=== PATIENT | female | born 1960 | race Caucasian/White ===

== ENCOUNTER 2021-04-24 10:51 | Outpatient (CLI) | payer MEDICAID, SELFPAY ==
--- NOTE | ~2021-04-24 | XR_ITS ---
EXAMINATION: XR knee RT 2V DATE: 04/24/2021 11:27 INDICATION: Right knee pain. TECHNIQUE: 2 views of right knee were obtained. COMPARISON: None. FINDINGS: Bone alignment is normal. No fracture. There is mild tricompartmental osteoarthritis. No kn ee joint effusion. There are loose bodies in the knee joint posteriorly. IMPRESSION: 1. Mild right knee osteoarthritis. 2. Right knee joint loose bodies. Reviewed, dictated and finalized at location A.
--- NOTE | ~2021-04-24 | XR_ITS ---
XR hip RT min 2V DATE: 04/24/2021 11:27 INDICATION: Right hip pain TECHNIQUE: AP and lateral views COMPARISON: November 20, 2013 pelvis FINDINGS: No fracture or dislocation, avascular necrosis or bone destruction of the right hip is evid ent. Hip joint space appears relatively well preserved. IMPRESSION: No significant abnormality of right hip Reviewed, dictated and finalized at location A.
--- NOTE | ~2021-04-24 | XR_ITS ---
XR lumbar spine 2-3V DATE: 04/24/2021 11:27 INDICATION: Chronic back pain, right hip pain TECHNIQUE: AP, lateral, coned lateral lumbosacral views COMPARISON: None FINDINGS: Surgical clips, retrocardiac, consistent with cholecystectomy. Normal alignment of the lumbar spine. No fracture or bone destruction or spondylolisthesis. The lumba r pedicles are intact. There is mild degenerative spurring of the lumbar spine. Lumbar and lumbosacral interspaces are intac t other than mild narrowing primarily at L3-4 and L4-5. The sacroiliac joints are intact. IMPRESSION: Mild degenerative change of the lumbar spine Reviewed, dictated and finalized at location A.
--- NOTE | ~2021-04-24 | XR_ITS ---
XR_CERV2-3V_CR DATE: 04/24/2021 11:27 INDICATION: Chronic neck pain TECHNIQUE: AP, open-mouth, lateral views COMPARISON: None FINDINGS: C1 and C2 are normally aligned and the odontoid process is intact. No fracture or dislocati on or locked facet or prevertebral soft tissue swelling. There is moderate degenerative disc disease and uncovertebral joint spurring at C5-6 and C6-7. IMPRESSION: Cervical spondylosis Reviewed, dictated and finalized at Location A. Reviewed, dictated and finalized at location A. IMPRESSION: Cervical spondylosis
--- NOTE | ~2021-04-24 | XR_ITS ---
XR thoracic spine 3V DATE: 04/24/2021 11:27 INDICATION: Chronic back pain TECHNIQUE: Standing AP, lateral, swimmer views COMPARISON: None FINDINGS: There is minimal levoscoliosis of the thoracic spine. There is moderate degenerative spurri ng, primarily at the mid and lower thoracic region. No fracture or dislocation or bone destruction. The thoracic pedicles are intact. No paraspinal soft tissue thickening. Surgical clips overlie the right upper quadrant, consistent with cholecystectomy. IMPRESSION: Mild levoscoliosis and moderate degenerative spurring Reviewed, dictated and finalized at location A.
== END 2021-04-24 10:52 | disposition home or self-care (01) ==
LOC: CHSIMG 10:55
PROVIDERS: PCP Nurse Practitioner Family; Visit Provider Nurse Practitioner
DX: M25.561 Pain in right knee (principal); M54.9 Dorsalgia, unspecified; M25.551 Pain in right hip
CPT/HCPCS: 72040; 72072; 72100; 73502; 73560

== ENCOUNTER 2021-06-25 13:41 | Outpatient (CLI) | payer OTHER, SELFPAY ==
--- NOTE | ~2021-06-25 | XR_ITS ---
EXAMINATION: XR chest 2V DATE: 06/25/2021 14:10 INDICATION: Cough. TECHNIQUE: Frontal and lateral views of the chest were obtained. COMPARISON: Chest single view 08/09/2018 FINDINGS: The chest demonstrates clear lungs without pneumonia, pleural effusion, or pneumothorax. Th e heart size is normal. Surgical clips in the right upper quadrant are likely from cholecystectomy. IMPRESSION: 1. No acute cardiopulmonary disease. Reviewed, dictated and finalized at location A.
== END 2021-06-25 13:42 | disposition home or self-care (01) ==
LOC: CHSLAB 13:42
PROVIDERS: PCP Nurse Practitioner Family; Visit Provider Physician Assistant
DX: R05 Cough (principal)
CPT/HCPCS: 71046

== ENCOUNTER 2021-08-27 11:06 | Outpatient (RCR) | payer OTHER, SELFPAY ==
--- NOTE | 2021-08-27 11:56 | PTOPEVAL ---
Thank you for referring Kierra Bonner to [facility].? The patient is scheduled to be seen for therapy? ____x/week for ___ weeks. Please review, sign, date and return this plan of care LAURA. I agree with and certify that the following plan of care is medically necessary. Referring Physician Date Admitting Provider: Attending Provider: Pravin Yang MD Referring Provider: *PT Outpatient Evaluation Start: 08/27/21 11:16 Freq: Status: Active Protocol: Document 08/27/21 11:15 [facility] (Rec: 08/27/21 11:55 [facility] [id number]) Therapy Assessment Status Assessment Status Assessment Status Evaluation Evaluation Information Problem Diagnosis R knee pain, DJD, PFPS Onset 04/24/21 Additional Evaluation Detail LEFS = 56% functionally declined Subjective Information patient reports she has been Query Text:As Reported By Patient/ having pain in the R knee Family since April of this year. she reports the knee is swollen. she reports she also has pain in the R ankle. she reports she also has pain/burning in her hips with walking. she reports back in April she began having pain. she had xrays of the entire spine and the hips . she reports later on she had an xray of the R knee. patient reports she had an injection of the R knee after xray. she reports this injection on 08/06/21. she reports some help from injection to the R knee. Prior Level of Function Comments Additional Prior Level of Function prior to April, patient reports Comments she was having more problems in the R ankle and neck. she reports plantar fascitis like symptoms int he R foot. she reports prior to April she was walking further distances/time , walking more stairs, and not limited in recreational/ community activities. she would like to get into an exercise and weight loss program. Pain Assessment Timing of Pain Assessment Timing of Pain Assessment Assessment Pain Scale Pain Scale Used [facility]
--- NOTE | 2021-09-29 11:02 | PTOPEVAL ---
Thank you for referring Kierra Bonner to [facility].? The patient is scheduled to be seen for therapy? ____x/week for ___ weeks. Please review, sign, date and return this plan of care LAURA. I agree with and certify that the following plan of care is medically necessary. Referring Physician Date Admitting Provider: Attending Provider: Pravin Yang MD Referring Provider: *PT Outpatient Evaluation Start: 08/27/21 11:16 Freq: Status: Active Protocol: Document 09/29/21 10:16 [facility] (Rec: 09/29/21 11:02 [facility] [id number]) Therapy Assessment Status Assessment Status Assessment Status Progress Evaluation Information Problem Diagnosis R knee pain, DJD, PFPS Onset 04/24/21 Subjective Information Patient reports that since Query Text:As Reported By Patient/ beginning therapy she has been Family feeling better since therapy. She states the pain is better and is a lot stronger. She states it is not buckling as much also. Patient states that she continues to be careful when walking and going up and down steps, but they are much easier. She states that since getting her orthodics, she feels much steadier and able to be on her feet for a period of time. Pain Assessment Timing of Pain Assessment Timing of Pain Assessment Assessment Pain Scale Pain Scale Used Numeric (1 - 10) Self Report Pain Assessment Right Knee(s) Reported Pain Level 4 Pain Description Aching,Dull Greatest Pain Intensity 5 Pain Score Pain Score 4: Self Report Interventions Used Interventions Used By Clinicians Activity or ADL's,Electrical Stimulation,Exercise,Heat Lower Extremity Range of Motion General Lower Extremity Range of Motion Gross Lower Extremity Range of Motion R knee AROM: 0-2-117 Comments L knee AROM: 0-116 Lower Extremity Muscle Strength Testing Hip Strength Right Hip Flexion Strength 4- Good - Hip Abduction Strength 4+ Good + Hip Adduction Strength 4+ Good + Left Hip Flexion Strength 4 Good Hip Abduction Strength 4+ Good + Hip Adduction Strength 4+ Good + Knee Strength Right Knee Flexion Strength 5 Normal Knee Extension Strength 5 Normal Left Knee Flexion Strength 5 Normal Knee Extension Strength 5 Normal Gait Assessment Gait Assessment
--- NOTE | 2021-10-15 17:08 | PTOPEVAL ---
Thank you for referring Kierra Bonner to [facility].? The patient is scheduled to be seen for therapy? ____x/week for ___ weeks. Please review, sign, date and return this plan of care LAURA. I agree with and certify that the following plan of care is medically necessary. Referring Physician Date Admitting Provider: Attending Provider: Pravin Yang MD Referring Provider: *PT Outpatient Evaluation Start: 08/27/21 11:16 Freq: Status: Active Protocol: Document 10/15/21 16:14 [facility] (Rec: 10/15/21 17:08 [facility] [id number]) Therapy Assessment Status Assessment Status Assessment Status Discharge Evaluation Information Problem Diagnosis R knee pain, DJD, PFPS Onset 04/24/21 Pain Assessment Timing of Pain Assessment Timing of Pain Assessment Assessment Pain Scale Pain Scale Used Numeric (1 - 10) Self Report Pain Assessment Right Knee(s) Reported Pain Level 3 Greatest Pain Intensity 4 Pain Score Pain Score 3: Self Report Interventions Used Interventions Used By Clinicians Activity or ADL's Lower Extremity Range of Motion General Lower Extremity Range of Motion Gross Lower Extremity Range of Motion R: 0-1-117 Comments L: 0-116 Lower Extremity Muscle Strength Testing Hip Strength Right Hip Flexion Strength 4+ Good + Hip Abduction Strength 4+ Good + Hip Adduction Strength 4+ Good + Left Hip Flexion Strength 5 Normal Hip Abduction Strength 4+ Good + Hip Adduction Strength 4+ Good + Knee Strength Right Knee Flexion Strength 5 Normal Knee Extension Strength 5 Normal Left Knee Flexion Strength 5 Normal Knee Extension Strength 5 Normal Muscle Length Testing Muscle Length Testing Left Hamstring Length 0 Query Text:(90 - 90 Position) Right Hamstring Length 0 Query Text:(90 - 90 Position) Gait Assessment Gait Assessment Additional Ambulation Comments Patient ambulates with B hip drop, but weight is evenly distributed between R and L. General Exercise General Exercises Exercise Description TherEx Query Text:Record Sets, Reps, - side stepping x 25 ft x 2 Resistance, and Position - heel raises x 30 - toe raises x 30 - slantboard x 1 minute x 3 - standing hip abduction x 30 B - standing hip extension x 30 B - squats x 20 - nustep 10 minutes level 5 -
== END 2021-10-15 10:23 | disposition home or self-care (01) ==
LOC: CHSPT 11:06
PROVIDERS: Visit Provider Orthopaedic Surgery
DX: M17.11 Unilateral primary osteoarthritis, right knee (principal); M25.561 Pain in right knee
CPT/HCPCS: 97014; 97110; 97140; 97161; 97530; G0283

== ENCOUNTER 2021-11-17 11:44 | Outpatient (CLI) | payer OTHER, SELFPAY ==
[2021-11-17 12:03] LABS: Basophils Absolute Auto 0.04 K/mm3 (0.00-0.10); Basophils Percent Auto 0.4 % (0.0-1.0); Eosinophils Absolute Auto 0.19 K/mm3 (0.02-0.50); Eosinophils Percent Auto 1.9 % (1.0-6.0); Hematocrit 40.8 % (35.0-49.0); Hemoglobin 13.7 g/dL (12.0-15.0); Immature Granulocyte Absolute 0.03 K/mm3 (0.00-0.00); Immature Granulocyte Percent A 0.3 % (0.0-0.0); Lymphocytes Absolute Auto 3.69 K/mm3 (1.10-4.50); Lymphocytes Percent Auto 36.8 % (18.0-42.0); Mean Corpuscular HGB Conc 33.6 g/dL (32.0-36.0); Mean Corpuscular Hemoglobin 31.7 pg (27.0-31.0); Mean Corpuscular Volume 94.4 fL (78.0-102.0); Mean Platelet Volume 9.3 fl (9.2-11.8); Monocytes Absolute Auto 0.79 K/mm3 (0.10-0.90); Monocytes Percent Auto 7.9 % (2.0-11.0); Neutrophils Absolute Auto 5.3 K/mm3 (1.7-7.2); Neutrophils Percent Auto 52.7 % (50.0-70.0); Platelet Count Result 262 K/mm3 (150-420); Red Blood Count 4.32 M/mm3 (4.20-5.40); Red Cell Distribution Width 11.9 % (11.6-14.4)
[2021-11-17 12:20] LABS: Hemoglobin A1C 6.3 % (<5.7)
[2021-11-17 12:46] LABS: Alanine Aminotransferase 63 U/L (14-59); Albumin Level 4.1 g/dL (3.4-5.0); Alkaline Phosphatase 70 U/L (46-116); Anion Gap 13 mmol/L (8-16); Aspartate Amino Transferase 34 U/L (15-37); Bilirubin,Total 0.6 mg/dL (0.00-1.00); Blood Urea Nitrogen 14 mg/dL (7-18); Carbon Dioxide 24 mmol/L (21-32); Chloride 99 mmol/L (98-108); Cholesterol 162 mg/dL (0-200); Estimated Glomerular Filt Rate 56; Free T4 Free Thyroxine 1.11 ng/dL (0.76-1.46); Glucose 127 mg/dL (70-99); HDL Direct 59 mg/dL (40-60); LDL Cholesterol Calculated 71 mg/dL (<130); Osmolality Calculated 284 mOsm/kg (285-295); Potassium 4.1 mmol/L (3.5-5.1); Sodium 136 mmol/L (136-145); Thyroid Stimulating Hormone 2.58 uIU/mL (0.36-3.74); Total Protein 7.8 g/dL (6.4-8.2); Triglycerides 162 mg/dL (0-150)
== END 2021-11-17 11:45 | disposition home or self-care (01) ==
LOC: CHSLAB 11:47
PROVIDERS: PCP Nurse Practitioner Family; Visit Provider Nurse Practitioner Family
DX: E11.9 Type 2 diabetes mellitus without complications (principal); E78.2 Mixed hyperlipidemia; I10 Essential (primary) hypertension; M54.9 Dorsalgia, unspecified
CPT/HCPCS: 36415; 80053; 80061; 83036; 84439; 84443; 85025

== ENCOUNTER 2021-11-25 10:21 | Outpatient (RCR) | payer OTHER, SELFPAY ==
--- NOTE | 2021-11-25 12:40 | OTOPEVAL ---
Thank you for referring Kierra Bonner to [facility].? The patient is scheduled to be seen for therapy? ____x/week for ___ weeks. Please review, sign, date and return this plan of care LAURA. I agree with and certify that the following plan of care is medically necessary. 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 Patient reports that her R thumb has been swollen and painful for about 1-1.5 years. 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 Patient has a history of a R elbow fracture in ~[id number] and reports that over the last 6 months her R elbow and dorsal forearm have been painful. Patient does everything with her R hand but does perform handwriting with her L. Patient states that turning something, opening a door, typing, grasping objects are all painful and more difficult. QuickDASH: 61.4% Diagnostic Tests X-Rays For This Problem Yes Prior Level of Function Activity Level (Last 3 Months) Occupation currently unemployed Hand Dominance Ambidextrous Activity of Daily Living Ability Independent Indoor/Home Mobility Independent Community Mobility Independent Stairs Ability Independent Functional Cognition (Planning, Shopping Independent , Taking Medications) Cooking Yes Cleaning Yes Laundry Yes Shopping Yes Driving Yes Pain Assess
--- NOTE | 2022-02-16 16:48 | PCOTNOTE ---
Patient was seen for 11 OT sessions. Last scheduled apt was cancelled/no-showed multiple times therefore a formal discharge was not completed. See patient's last treatment note for functional status at time of discharge. MS
== END 2021-12-29 09:48 | disposition home or self-care (01) ==
LOC: CHSOT 10:21
PROVIDERS: Visit Provider Nurse Practitioner Family
DX: M19.021 Primary osteoarthritis, right elbow (principal)
CPT/HCPCS: 97014; 97035; 97110; 97140; 97165; G0283

== ENCOUNTER 2021-12-23 08:10 | Outpatient (CLI) | payer OTHER, SELFPAY ==
--- NOTE | ~2021-12-23 | CT_ITS ---
EXAMINATION: CT abdomen w con INDICATION: Right upper quadrant pain TECHNIQUE: Computed tomographic images of the abdomen were obtained after the administration of 100 c c of Omnipaque 350 intravenous contrast. The dose-length product (DLP) was 932.55 mGy-cm. Automated e xposure control and iterative reconstruction technique were employed. COMPARISON: None available FINDINGS: The lung bases are clear. The heart size is normal. The gallbladder is surgically absent. T he liver is diffusely low in attenuation when compared with the spleen, consistent with hepatic steat osis. The spleen, pancreas, and adrenal glands are normal. The kidneys are unremarkable. There are no pathologically enlarged abdominal lymph nodes. There is no free intraperitoneal gas or evidence of b owel obstruction. Moderate lower thoracic spondylosis is noted. There is a small umbilical hernia con taining fat. IMPRESSION: 1. Diffuse hepatic steatosis. Reviewed, dictated and finalized at location B. 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
[2021-12-23 08:32] LABS: Estimated Glomerular Filt Rate 54
== END 2021-12-23 08:11 | disposition home or self-care (01) ==
LOC: CHSIMG 08:12
PROVIDERS: PCP Nurse Practitioner Family; Visit Provider Nurse Practitioner Family
DX: R10.11 Right upper quadrant pain (principal)
CPT/HCPCS: 74160; Q9967

== ENCOUNTER 2022-04-15 11:12 | Emergency (ER) | payer OTHER, SELFPAY ==
[2022-04-15 11:20] VITALS: BP 140/67; PULSE 72; RESP 16; TEMP 36; O2SAT 97
--- NOTE | 2022-04-15 11:37 | ED.EYEPROB ---
HPI - Eye Problem General Chief complaint: Eye Problems Stated complaint: pain, swelling, itchiness in both eyes, L ear pain Source: patient Mode of arrival: ambulatory Limitations: no limitations History of Present Illness HPI Narrative: this is a 61-year-old female that presents with redness around the the eyes with itching conjunctiva is spared there is currently no drainage but the IA eyes are itchy, with some ear congestion and pressure with some nasal discharge frontal sinus pressure with no shortness of breath no audible wheezing no fever chills. The patient believes that she got into some outdoor plants and cause some itching to her facial area and especially around. chief complaint: eye pain and eye redness Onset (ago): day(s) Onset description: gradual Duration: constant Location: both eyes Eye Symptoms: redness Place: street/outdoors Severity: mild Related Data Home Medications Medication Instructions Recorded Confirmed metformin 1,000 mg tablet 1,000 mg PO DAILY 09/29/21 04/15/22 bupropion HCl 300 mg 24 hr tablet, 300 tablet PO DAILY 04/15/22 04/15/22 extended release lisinopril 10 1 tablet PO DAILY 04/15/22 04/15/22 mg-hydrochlorothiazide 12.5 mg tablet Allergies Allergy/AdvReac Type Severity Reaction Status Date / Time Sulfa (Sulfonamide Allergy Unknown Unknown Verified 04/15/22 11:27 Antibiotics) Review of Systems Review of Systems: All systems reviewed & are unremarkable except as noted in HPI and below PMFSH Past Medical History Medical History Anxiety Arthritis Asthma Chills CMC DJD(carpometacarpal degenerative joint disease), localized primary Degenerative joint disease of elbow Depression Diabetes Ear pain Fever Fibromyalgia Hair loss HTN (hypertension) Memory loss Patellofemoral syndrome Pes cavus Right elbow pain Right hand pain Right knee DJD Right knee pain Urinary frequency UTI (urinary tract infection) Surgical History Surgical History History of appendectomy per patient's questionnaire History of cholecystectomy per patient's questionnaire History of partial hysterectomy per patient's questionnaire Family History Family History Other Arthritis Depression Diabetes mellitus Hypertension Neuropathy Social History Social History Additional smoking assessment comments: Quit in 2016 Substance use: never Substance use type: does not use Gender identity (if verbalized by the patient): Female Exam Const: General: healthy appearing and no acute distress Limitations: no limitations HENMT: Head: normal to inspection General nose exam: Normal external nose present Eyes: Other: Around the eyes bilaterally redness with itching Neck: Neck: normal visual inspection Chest: Chest palpation & inspection: normal inspection of the chest Resp: Effort & Inspection: normal respiratory effort Cardio: Rate: regular rate Rhythm: regular rhythm GI: Auscultation: normal bowel sounds Skin: General skin exam: normal color Neuro: General: patient oriented x3 and moves all extremities Cranial nerves: Yes Nystagmus not present Extrem: General: normal to inspection Psych: Mental Status: mental status grossly normal Course Course Emergency Course: will send prescriptions to patient's pharmacy otherwise she is doing well with no audible wheezing patient otherwise is comfortable. Critical Care Time Critical Care Time Critical Care Time: No Discharge Plan Discharge Clinical Impression: Allergic reaction Qualifiers: Encounter type: initial encounter Qualified Code(s): T78.40XA - Allergy, unspecified, initial encounter Patient Disposition: Home, Self-Care Condition: Stable Instructions: Antib
== END 2022-04-15 11:52 | disposition home or self-care (01) ==
PROVIDERS: Emergency Provider Emergency Medicine; PCP Nurse Practitioner Family
DX: T78.40XA Allergy, unspecified, initial encounter (principal)
CPT/HCPCS: 99283

== ENCOUNTER 2022-06-08 14:21 | Outpatient (CLI) | payer OTHER, SELFPAY ==
[2022-06-08 14:38] LABS: Basophils Absolute Auto 0.05 K/mm3 (0.00-0.10); Basophils Percent Auto 0.6 % (0.0-1.0); Eosinophils Absolute Auto 0.21 K/mm3 (0.02-0.50); Eosinophils Percent Auto 2.5 % (1.0-6.0); Hematocrit 38.9 % (35.0-49.0); Hemoglobin 13.3 g/dL (12.0-15.0); Immature Granulocyte Absolute 0.03 K/mm3 (0.00-0.00); Immature Granulocyte Percent A 0.4 % (0.0-0.0); Lymphocytes Absolute Auto 3.66 K/mm3 (1.10-4.50); Lymphocytes Percent Auto 43.5 % (18.0-42.0); Mean Corpuscular HGB Conc 34.2 g/dL (32.0-36.0); Mean Corpuscular Volume 93.7 fL (78.0-102.0); Mean Platelet Volume 9.1 fl (9.2-11.8); Monocytes Percent Auto 9.5 % (2.0-11.0); Neutrophils Absolute Auto 3.7 K/mm3 (1.7-7.2); Neutrophils Percent Auto 43.5 % (50.0-70.0); Platelet Count Result 264 K/mm3 (150-420); Red Blood Count 4.15 M/mm3 (4.20-5.40); Red Cell Distribution Width 12.2 % (11.6-14.4); White Blood Count 8.4 K/mm3 (4.8-10.8)
[2022-06-08 14:48] LABS: Hemoglobin A1C 6.3 % (<5.7)
[2022-06-08 15:02] LABS: Alanine Aminotransferase 51 U/L (14-59); Albumin Level 3.9 g/dL (3.4-5.0); Alkaline Phosphatase 71 U/L (46-116); Anion Gap 11 mmol/L (8-16); Aspartate Amino Transferase 36 U/L (15-37); Bilirubin,Total 0.4 mg/dL (0.00-1.00); Blood Urea Nitrogen 17 mg/dL (7-18); Calcium 9.2 mg/dL (8.5-10.1); Carbon Dioxide 25 mmol/L (21-32); Chloride 99 mmol/L (98-108); Cholesterol 151 mg/dL (0-200); Estimated Glomerular Filt Rate 51; Free T4 Free Thyroxine 0.92 ng/dL (0.76-1.46); Glucose 113 mg/dL (70-99); HDL Direct 48 mg/dL (40-60); LDL Cholesterol Calculated 57 mg/dL (<130); Osmolality Calculated 282 mOsm/kg (285-295); Potassium 3.7 mmol/L (3.5-5.1); Sodium 135 mmol/L (136-145); Thyroid Stimulating Hormone 2.94 uIU/mL (0.36-3.74); Total Protein 7.7 g/dL (6.4-8.2); Triglycerides 229 mg/dL (0-150)
== END 2022-06-08 14:22 | disposition home or self-care (01) ==
LOC: CHSLAB 14:26
PROVIDERS: PCP Nurse Practitioner; Visit Provider Nurse Practitioner
DX: E78.2 Mixed hyperlipidemia (principal); I10 Essential (primary) hypertension; E11.9 Type 2 diabetes mellitus without complications; F33.9 Major depressive disorder, recurrent, unspecified; M54.9 Dorsalgia, unspecified; Z68.41 Body mass index [BMI] 40.0-44.9, adult; Z13.31 Encounter for screening for depression
CPT/HCPCS: 36415; 80053; 80061; 83036; 84439; 84443; 85025

== ENCOUNTER 2022-09-24 10:07 | Outpatient (CLI) | payer OTHER, SELFPAY ==
--- NOTE | ~2022-09-24 | CT_ITS ---
EXAMINATION: CT brain wo con DATE: 09/24/2022 10:29 INDICATION: Confusion and memory changes for past 2 years TECHNIQUE: Computed tomography (CT) of the head was performed without intravenous contrast. The mA wa s adjusted according to patient size. Iterative reconstruction technique was employed. Exam dose: 60 5.33 mGy-cm total exam DLP. COMPARISON: None FINDINGS: Bilateral carotid siphon internal carotid artery calcifications. Minimal bilateral basal ga nglia calcifications. There is nonspecific diminished attenuation of the cerebral white matter, likely due to chronic small vessel ischemic changes. No intracranial mass lesion or hemorrhage, midline shift or mass effect. Ventricular size is within n ormal range. No subdural or epidural hematoma is detected. The orbital contents are unremarkable. The mastoid air cells are normally developed and aerated. There is opacification of the diminutive ri ght frontal sinus and anterior ethmoid air cell. Included paranasal sinuses are otherwise unremarkabl e. No fracture or bone destruction of the cranial vault. IMPRESSION: Cerebral atherosclerosis and chronic small vessel ischemic changes of the cerebral white matter No acute intracranial finding Minimal focal right frontal ethmoid air cell opacification Reviewed, dictated and finalized at Location A. Reviewed, dictated and finalized at location B. 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
== END 2022-09-24 10:08 | disposition home or self-care (01) ==
LOC: CHSIMG 10:09
PROVIDERS: PCP Nurse Practitioner; Visit Provider Nurse Practitioner
DX: R41.3 Other amnesia (principal)
CPT/HCPCS: 70450

== ENCOUNTER 2022-11-16 11:13 | Outpatient (CLI) | payer OTHER, SELFPAY ==
[2022-11-16 11:32] LABS: Basophils Absolute Auto 0.05 K/mm3 (0.00-0.10); Basophils Percent Auto 0.7 % (0.0-1.0); Eosinophils Absolute Auto 0.14 K/mm3 (0.02-0.50); Eosinophils Percent Auto 1.9 % (1.0-6.0); Hematocrit 38.5 % (35.0-49.0); Hemoglobin 12.8 g/dL (12.0-15.0); Immature Granulocyte Absolute 0.02 K/mm3 (0.00-0.00); Immature Granulocyte Percent A 0.3 % (0.0-0.0); Lymphocytes Percent Auto 43.5 % (18.0-42.0); Mean Corpuscular HGB Conc 33.2 g/dL (32.0-36.0); Mean Corpuscular Hemoglobin 31.6 pg (27.0-31.0); Mean Corpuscular Volume 95.1 fL (78.0-102.0); Mean Platelet Volume 9.4 fl (9.2-11.8); Monocytes Absolute Auto 0.59 K/mm3 (0.10-0.90); Neutrophils Absolute Auto 3.4 K/mm3 (1.7-7.2); Neutrophils Percent Auto 45.6 % (50.0-70.0); Platelet Count Result 307 K/mm3 (150-420); Red Blood Count 4.05 M/mm3 (4.20-5.40); Red Cell Distribution Width 12.6 % (11.6-14.4); White Blood Count 7.4 K/mm3 (4.8-10.8)
[2022-11-16 12:24] LABS: Ferritin 148 ng/mL (8-252); Iron 70 ug/dL (50-170); Percent Iron Saturation 18 % (12-57)
== END 2022-11-16 11:14 | disposition home or self-care (01) ==
LOC: CHSLAB 11:16
PROVIDERS: PCP Nurse Practitioner; Visit Provider Physician Assistant Medical
DX: E83.110 Hereditary hemochromatosis (principal)
CPT/HCPCS: 36415; 82728; 83540; 83550; 85025

== ENCOUNTER 2022-11-30 13:56 | Outpatient (CLI) | payer OTHER, SELFPAY ==
[2022-11-30 16:05] LABS: Ferritin 106 ng/mL (8-252); Iron 42 ug/dL (50-170); Percent Iron Saturation 12 % (12-57)
== END 2022-11-30 13:57 | disposition home or self-care (01) ==
LOC: CHSLAB 14:03
PROVIDERS: PCP Nurse Practitioner; Visit Provider Physician Assistant Medical
DX: E83.110 Hereditary hemochromatosis (principal)
CPT/HCPCS: 36415; 82728; 83540; 83550

== ENCOUNTER 2023-01-11 11:50 | Outpatient (CLI) | payer OTHER, SELFPAY ==
[2023-01-11 12:21] LABS: Basophils Absolute Auto 0.04 K/mm3 (0.00-0.10); Basophils Percent Auto 0.6 % (0.0-1.0); Eosinophils Absolute Auto 0.11 K/mm3 (0.02-0.50); Eosinophils Percent Auto 1.5 % (1.0-6.0); Hematocrit 39.1 % (35.0-49.0); Hemoglobin 13.2 g/dL (12.0-15.0); Immature Granulocyte Absolute 0.02 K/mm3 (0.00-0.00); Immature Granulocyte Percent A 0.3 % (0.0-0.0); Lymphocytes Absolute Auto 3.21 K/mm3 (1.10-4.50); Lymphocytes Percent Auto 44.5 % (18.0-42.0); Mean Corpuscular HGB Conc 33.8 g/dL (32.0-36.0); Mean Corpuscular Hemoglobin 30.6 pg (27.0-31.0); Mean Corpuscular Volume 90.5 fL (78.0-102.0); Mean Platelet Volume 9.4 fl (9.2-11.8); Monocytes Absolute Auto 0.54 K/mm3 (0.10-0.90); Monocytes Percent Auto 7.5 % (2.0-11.0); Neutrophils Absolute Auto 3.3 K/mm3 (1.7-7.2); Neutrophils Percent Auto 45.6 % (50.0-70.0); Platelet Count Result 291 K/mm3 (150-420); Red Blood Count 4.32 M/mm3 (4.20-5.40); Red Cell Distribution Width 12.6 % (11.6-14.4); White Blood Count 7.2 K/mm3 (4.8-10.8)
[2023-01-11 15:15] LABS: Ferritin 120 ng/mL (8-252)
== END 2023-01-11 11:51 | disposition home or self-care (01) ==
LOC: CHSLAB 11:53
PROVIDERS: Internal Medicine; PCP Nurse Practitioner; Visit Provider Physician Assistant Medical
DX: E83.110 Hereditary hemochromatosis (principal)
CPT/HCPCS: 36415; 82728; 85025

== ENCOUNTER 2023-02-09 12:13 | Outpatient (CLI) | payer OTHER, SELFPAY ==
[2023-02-09 12:33] LABS: Basophils Absolute Auto 0.05 K/mm3 (0.00-0.10); Basophils Percent Auto 0.6 % (0.0-1.0); Eosinophils Absolute Auto 0.19 K/mm3 (0.02-0.50); Eosinophils Percent Auto 2.3 % (1.0-6.0); Hematocrit 40.2 % (35.0-49.0); Hemoglobin 13.4 g/dL (12.0-15.0); Immature Granulocyte Absolute 0.03 K/mm3 (0.00-0.00); Immature Granulocyte Percent A 0.4 % (0.0-0.0); Lymphocytes Absolute Auto 3.86 K/mm3 (1.10-4.50); Lymphocytes Percent Auto 47.3 % (18.0-42.0); Mean Corpuscular HGB Conc 33.3 g/dL (32.0-36.0); Mean Corpuscular Volume 90.1 fL (78.0-102.0); Mean Platelet Volume 9.5 fl (9.2-11.8); Monocytes Absolute Auto 0.66 K/mm3 (0.10-0.90); Monocytes Percent Auto 8.1 % (2.0-11.0); Neutrophils Absolute Auto 3.4 K/mm3 (1.7-7.2); Neutrophils Percent Auto 41.3 % (50.0-70.0); Platelet Count Result 283 K/mm3 (150-420); Red Blood Count 4.46 M/mm3 (4.20-5.40); Red Cell Distribution Width 12.8 % (11.6-14.4); White Blood Count 8.2 K/mm3 (4.8-10.8)
[2023-02-09 13:28] LABS: Ferritin 96 ng/mL (8-252); Iron 84 ug/dL (50-170); Percent Iron Saturation 21 % (12-57)
== END 2023-02-09 12:14 | disposition home or self-care (01) ==
LOC: CHSLAB 12:16
PROVIDERS: PCP Nurse Practitioner; Visit Provider Internal Medicine
DX: Z14.8 Genetic carrier of other disease (principal)
CPT/HCPCS: 36415; 82728; 83540; 83550; 85025

== ENCOUNTER 2023-03-09 14:33 | Outpatient (RCR) | payer OTHER, SELFPAY ==
[2023-03-09 15:40] LABS: Ferritin 107 ng/mL (8-252); Iron 105 ug/dL (50-170); Percent Iron Saturation 31 % (12-57)
[2023-03-10 13:20] LABS: Basophils Absolute Auto 0.05 K/mm3 (0.00-0.10); Basophils Percent Auto 0.6 % (0.0-1.0); Eosinophils Absolute Auto 0.16 K/mm3 (0.02-0.50); Eosinophils Percent Auto 1.9 % (1.0-6.0); Hematocrit 40.5 % (35.0-49.0); Immature Granulocyte Absolute 0.02 K/mm3 (0.00-0.00); Immature Granulocyte Percent A 0.2 % (0.0-0.0); Lymphocytes Absolute Auto 3.93 K/mm3 (1.10-4.50); Mean Corpuscular HGB Conc 32.1 g/dL (32.0-36.0); Mean Corpuscular Hemoglobin 29.9 pg (27.0-31.0); Mean Corpuscular Volume 93.1 fL (78.0-102.0); Mean Platelet Volume 10.4 fl (9.2-11.8); Monocytes Absolute Auto 0.89 K/mm3 (0.10-0.90); Monocytes Percent Auto 10.6 % (2.0-11.0); Neutrophils Absolute Auto 3.3 K/mm3 (1.7-7.2); Neutrophils Percent Auto 39.7 % (50.0-70.0); Platelet Count Result 289 K/mm3 (150-420); Red Blood Count 4.35 M/mm3 (4.20-5.40); Red Cell Distribution Width 13.7 % (11.6-14.4); White Blood Count 8.4 K/mm3 (4.8-10.8)
== END 2023-06-07 23:59 | disposition home or self-care (01) ==
LOC: CHSLAB 14:33
PROVIDERS: PCP Nurse Practitioner; Visit Provider Internal Medicine
DX: Z14.8 Genetic carrier of other disease (principal)
CPT/HCPCS: 36415; 82728; 83540; 83550; 85025

== ENCOUNTER 2023-06-10 05:10 | Emergency (ER) | payer OTHER, SELFPAY ==
--- NOTE | ~2023-06-10 | CT_ITS ---
EXAMINATION: CT lumbar spine wo con DATE: 06/10/2023 06:06 INDICATION: Low back pain. Flank pain. TECHNIQUE: Computed tomography (CT) of the lumbar spine was performed without intravenous contrast. A utomated exposure control and iterative reconstruction technique were employed. The dose-length produ ct was 1199.14 mGy-cm. COMPARISON: None FINDINGS: Bone alignment is normal. Vertebral body heights are normal. There is moderately decreased disc height at T11-T12 and mildly decreased disc height at L3-L4, L4-L5, and L5-S1. The following dis c levels are specifically discussed: L1-L2: The disc is bulging. There is mild right and moderate left facet joint osteoarthritis. There i s mild right neural foraminal stenosis. There is no central canal stenosis. L2-L3: The disc is bulging. There is severe bilateral facet joint osteoarthritis. There is mild bilat eral neural foraminal stenosis. There is mild central canal stenosis. L3-L4: The disc is bulging. There is moderate right and mild left facet joint osteoarthritis. There i s mild bilateral neural foraminal stenosis. There is mild central canal stenosis. L4-L5: The disc is bulging. There is severe bilateral facet joint osteoarthritis. There is mild bilat eral neural foraminal stenosis. There is mild central canal stenosis. L5-S1: The disc is bulging. There is severe bilateral facet joint osteoarthritis. There is mild right and moderate left neural foraminal stenosis. There is mild central canal stenosis. IMPRESSION: 1. Moderate lumbar spondylosis. Reviewed, dictated and finalized at location A.
--- NOTE | ~2023-06-10 | CT_ITS ---
EXAMINATION: CT abdomen pelvis wo con DATE: 06/10/2023 06:07 INDICATION: Right flank pain. Low back pain. TECHNIQUE: Computed tomography (CT) of the abdomen and pelvis was performed without intravenous contr ast. Automated exposure control and iterative reconstruction technique were employed. The dose-length product was 1345.83 mGy-cm. COMPARISON: CT abdomen 12/23/2021 FINDINGS: The visualized portions of the lung bases demonstrate mild scarring in paraspinal right low er lobe. No pleural effusion. The heart size is normal. No pericardial effusion. There is diffuse hep atic steatosis. There are changes of cholecystectomy. The spleen, pancreas, adrenal glands, and kidne ys are normal. There is no urolithiasis. There are no dilated loops of bowel. The appendix is not vis ualized. Aortic atherosclerosis is noted. There are no pathologically enlarged lymph nodes. There is no free intraperitoneal fluid. There is mild osteoarthritis of the hips. There is moderate thoracic a nd lumbar spondylosis. IMPRESSION: 1. No urolithiasis. 2. Diffuse hepatic steatosis. Reviewed, dictated and finalized at location A.
[2023-06-10 05:11] VITALS: BP 149/115; PULSE 83; RESP 20; TEMP 36.6; O2SAT 96
[2023-06-10 05:15] VITALS: BP 143/81
[2023-06-10 05:18] VITALS: BP 143/81
--- NOTE | 2023-06-10 05:36 | ED.GENADULT ---
HPI - General Adult General Chief complaint: Back Pain/Injury Stated complaint: Back Pain History of Present Illness HPI narrative: Kierra is a 63F with a PMH of hemachromatosis, chronic back pain, DMII and some UTI's that presented to the ER with severe right flank and low back pain. It started yesterday evening and is getting worse. There is no radiation, dysuria, hematuria or urinary frequency. It is accompanied by mild nausea, epigastric gas pain. It is better with movement. No preceding injury. No lower extremity weakness or loss of bowel/bladder control. Related Data Home Medications Medication Instructions Recorded Confirmed metformin 1,000 mg tablet 1,000 mg PO DAILY 09/29/21 06/10/23 bupropion HCl 300 mg 24 hr tablet, 300 tablet PO DAILY 04/15/22 06/10/23 extended release lisinopril 10 1 tablet PO DAILY 04/15/22 06/10/23 mg-hydrochlorothiazide 12.5 mg tablet cyanocobalamin (vitamin B-12) 1,000 mcg PO DAILY 08/31/22 06/10/23 1,000 mcg capsule gabapentin 100 mg capsule 100 mg PO TID 08/31/22 06/10/23 Allergies Allergy/AdvReac Type Severity Reaction Status Date / Time Sulfa (Sulfonamide Allergy Intermediate Rash Verified 08/31/22 10:55 Antibiotics) morphine Allergy Itching Verified 06/10/23 06:01 Review of Systems Review of Systems: All systems reviewed & are unremarkable except as noted in HPI and below PMFSH Past Medical History Medical History Anxiety Arthritis Asthma Chills CMC DJD(carpometacarpal degenerative joint disease), localized primary Degenerative joint disease of elbow Depression Diabetes Diabetes Ear pain Fever Fibromyalgia Hair loss HTN (hypertension) Memory loss Patellofemoral syndrome Pes cavus Right elbow pain Right hand pain Right knee DJD Right knee pain Screening mammogram, encounter for Urinary frequency UTI (urinary tract infection) Surgical History Surgical History History of appendectomy per patient's questionnaire History of cholecystectomy per patient's questionnaire History of partial hysterectomy per patient's questionnaire Family History Family History Other Arthritis Depression Diabetes mellitus Hypertension Neuropathy Social History Social History Smoking status: Former smoker Additional smoking assessment comments: Quit in 2016 Alcohol intake: never Substance use: never Substance use type: does not use Living arrangements: other Additional living arrangements comments: Occupation/Education: occupation 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 Gender identity (if verbalized by the patient): Female Sexual Orientation (if Verbalized by the Patient): Straight or Heterosexual Exam Const: General: healthy appearing; No confusion Nutritional Appearance: well nourished Orientation/consciousness: patient oriented x3 Other: mild distress HENMT: Head: normal to inspection Ears: external ears normal Face/Nose/Sinus: Normal external nose present Face and sinus: normal facial exam Eyes: Conjunctivae: conjunctivae normal Pupils: Equal, round and reactive pupils present EOM: EOMs intact bilaterally Neck: Neck: normal visual inspection Chest: Chest palpation & inspection: normal inspection of the chest Resp: Effort & Inspection: normal respiratory effort Auscultation: clear to auscultation bilaterally Cardio: Rate: regular rate Rhythm: regular rhythm Heart sounds: no murmurs GI: Inspection: non-distended GI Palp: Yes Soft to palpation, No Tenderness to palpation present (GI) and No Guarding due to palpation present (GI) : Other: severe right sided tenderness Skin: General skin exam: normal color Neuro: General: patient orient
[2023-06-10 05:48] LABS: Hematocrit 39.5 % (35.0-49.0); Hemoglobin 13.3 g/dL (12.0-15.0); Mean Corpuscular HGB Conc 33.7 g/dL (32.0-36.0); Mean Corpuscular Hemoglobin 31.1 pg (27.0-31.0); Mean Corpuscular Volume 92.3 fL (78.0-102.0); Platelet Count Result 249 K/mm3 (150-420); Red Blood Count 4.28 M/mm3 (4.20-5.40); Red Cell Distribution Width 12.7 % (11.6-14.4); White Blood Count 9.2 K/mm3 (4.8-10.8)
[2023-06-10] MEDS: ONDANSETRON INJ 4 MG/2 ML VIAL IV PUSH (05:51)
[2023-06-10 05:52] LABS: Appearance Urine Clear (Clear); Bilirubin Urine Negative (Negative); Blood Urine Negative (Negative); Color Urine Light Yellow (Yellow); Glucose Urine UA Negative (Negative); Ketones Urine Negative (Negative); Leukocyte Esterase Ur Negative LEU/UL (Negative); Nitrate Urine Negative (Negative); Protein Urine Negative (Negative); Specific Grav Ur <= 1.005 (1.010-1.020); Urobilinogen Urine 0.2 mg/dL (0.2-1.0)
[2023-06-10 05:53] LABS: Add Urine Microscopic? NO
[2023-06-10] MEDS: KETOROLAC 30 MG/ML VIAL (*BKC) IV PUSH (05:55)
--- NOTE | 2023-06-10 05:58 | PC.NURSE ---
0555-pt transported to imaging via hospital wheelchair, escorted by [employer] radiologic technology instructor.
[2023-06-10 06:02] LABS: Band Neutrophils Percent 0 % (0-6); Basophils Absolute Manual 0.09 K/mm3 (0-0.1); Basophils Percent Manual 1 % (0-1); Eosinophils Absolute Manual 0.09 K/mm3 (0.02-0.5); Eosinophils Percent Manual 1 % (1-6); Lymphocytes Absolute Manual 5.15 K/mm3 (1.1-4.5); Lymphocytes Percent Manual 56 % (18-44); Metamyelocytes Percent 0 %; Monocytes Absolute Manual 0.64 K/mm3 (0.1-0.90); Monocytes Percent Manual 7 % (3-9); Myelocytes Percent 0 %; Neutrophils Absolute Manual 3.22 K/mm3 (1.7-7.2); Neutrophils Percent Manual 35 % (46-73); Platelet Estimate Adequate (Adequate); Total Cells Counted 100
[2023-06-10 06:03] LABS: Alanine Aminotransferase 37 U/L (14-59); Albumin Level 3.9 g/dL (3.4-5.0); Alkaline Phosphatase 71 U/L (46-116); Anion Gap 10 mmol/L (8-16); Aspartate Amino Transferase 24 U/L (15-37); Bilirubin,Total 0.4 mg/dL (0.00-1.00); Blood Urea Nitrogen 16 mg/dL (7-18); Calcium 9.7 mg/dL (8.5-10.1); Carbon Dioxide 27 mmol/L (21-32); Chloride 101 mmol/L (98-108); Estimated CRCL calculation 62 ml/min; Estimated Glomerular Filt Rate 50; Glucose 156 mg/dL (70-99); Lipase 50 U/L (16-77); Osmolality Calculated 290 mOsm/kg (285-295); Potassium 4.2 mmol/L (3.5-5.1); Sodium 138 mmol/L (136-145); Total Protein 7.8 g/dL (6.4-8.2)
[2023-06-10 06:06] LABS: Lactic Acid Reflex 1.7 mmol/L (0.4-2.0)
--- NOTE | 2023-06-10 06:06 | PC.NURSE ---
0605-pt returns from imaging via hospital wheelchair, escorted by [employer].
[2023-06-10 06:30] VITALS: BP 143/97; PULSE 76; O2SAT 95
== END 2023-06-10 07:10 | disposition home or self-care (01) ==
PROVIDERS: Emergency Provider Family Medicine; PCP Nurse Practitioner
DX: M51.36 Other intervertebral disc degeneration, lumbar region (principal); E11.9 Type 2 diabetes mellitus without complications; I10 Essential (primary) hypertension; Z79.84 Long term (current) use of oral hypoglycemic drugs; Z87.891 Personal history of nicotine dependence
CPT/HCPCS: 36415; 72131; 74176; 80053; 81003; 83605; 83690; 85025; 96374; 96375; 99284; J1885; J2405

== ENCOUNTER 2023-07-19 14:57 | Outpatient (RCR) | payer OTHER, SELFPAY ==
[2023-07-19 15:18] LABS: Basophils Absolute Auto 0.05 K/mm3 (0.00-0.10); Basophils Percent Auto 0.5 % (0.0-1.0); Eosinophils Absolute Auto 0.25 K/mm3 (0.02-0.50); Eosinophils Percent Auto 2.6 % (1.0-6.0); Hematocrit 38.1 % (35.0-49.0); Hemoglobin 12.8 g/dL (12.0-15.0); Immature Granulocyte Absolute 0.03 K/mm3 (0.00-0.00); Immature Granulocyte Percent A 0.3 % (0.0-0.0); Lymphocytes Absolute Auto 3.98 K/mm3 (1.10-4.50); Lymphocytes Percent Auto 41.1 % (18.0-42.0); Mean Corpuscular HGB Conc 33.6 g/dL (32.0-36.0); Mean Corpuscular Hemoglobin 30.9 pg (27.0-31.0); Mean Platelet Volume 9.4 fl (9.2-11.8); Monocytes Percent Auto 10.3 % (2.0-11.0); Neutrophils Absolute Auto 4.4 K/mm3 (1.7-7.2); Neutrophils Percent Auto 45.2 % (50.0-70.0); Platelet Count Result 281 K/mm3 (150-420); Red Blood Count 4.14 M/mm3 (4.20-5.40); Red Cell Distribution Width 12.6 % (11.6-14.4); White Blood Count 9.7 K/mm3 (4.8-10.8)
[2023-07-19 15:55] LABS: Ferritin 132 ng/mL (8-252); Iron 76 ug/dL (50-170); Percent Iron Saturation 22 % (12-57)
== END 2023-10-17 23:59 | disposition home or self-care (01) ==
LOC: CHSLAB 14:57
PROVIDERS: PCP Nurse Practitioner Family
DX: Z14.8 Genetic carrier of other disease (principal)
CPT/HCPCS: 36415; 82728; 83540; 83550; 85025

== ENCOUNTER 2023-08-16 11:06 | Outpatient (RCR) | payer OTHER, SELFPAY ==
--- NOTE | 2023-08-16 12:52 | OPREHPOC ---
Outpatient Therapy Plan of Care This is a Multidisciplinary Plan of Care that may contain components documented by all disciplines (PT, OT, and ST.) PT Problem 1 PT Problem #1 Knowledge Deficit PT Goal 1 Goal The patient will be independent in a home exercise program to continue after discharge from skilled PT. Target Visit 24 PT Problem 2 PT Problem #2 Pain PT Goal 1 Goal The patient will report no greater than 2/10 neck pain with ADLs. The patient will report no greater than 2/10 low back pain with ADLs. Target Visit 24 PT Goal 2 Progress Not Met PT Problem 3 PT Problem #3 Impaired Range of Motion PT Goal 1 Goal The patient will demonstrate 50 degrees of cervical rotation to improve ability to drive. The patient will demonstrate 40 degrees of lumbar flexion to improve ability to dress the LE. Target Visit 24 PT Problem 4 PT Problem #4 Impaired Flexibility PT Goal 1 Goal The patient will demonstrate 4-/5 or greater strength in bilateral hip flexors, abductors, and extensors to improve ability to perform daily activities. Target Visit 24 PT Problem 5 PT Problem #5 Impaired Functional Mobil PT Goal 1 Goal The patient will demonstrate the ability to ambulate 1,000 feet during the 6 minute walk test to improve community ambulation. Target Visit 24
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
--- NOTE | 2023-10-25 16:56 | OPREHPOC ---
Outpatient Therapy Plan of Care This is a Multidisciplinary Plan of Care that may contain components documented by all disciplines (PT, OT, and ST.) PT Problem 1 PT Problem #1 Knowledge Deficit PT Goal 1 Goal The patient will be independent in a home exercise program to continue after discharge from skilled PT. Target Visit 24 Progress Partially Met Comment continue PT Problem 2 PT Problem #2 Pain PT Goal 1 Goal The patient will report no greater than 2/10 neck pain with ADLs. The patient will report no greater than 2/10 low back pain with ADLs. Target Visit 24 Progress Not Met Comment continue PT Goal 2 Progress Not Met PT Problem 3 PT Problem #3 Impaired Range of Motion PT Goal 1 Goal The patient will demonstrate 50 degrees of cervical rotation to improve ability to drive. The patient will demonstrate 40 degrees of lumbar flexion to improve ability to dress the LE. Target Visit 24 Progress Not Met Comment continue PT Problem 4 PT Problem #4 Impaired Flexibility PT Goal 1 Goal The patient will demonstrate 4-/5 or greater strength in bilateral hip flexors, abductors, and extensors to improve ability to perform daily activities. Target Visit 24 Progress Partially Met Comment continue PT Goal 2 Goal New goal: The patient will demonstrate 4/5 left shoulder flexion and abduction strength to perform overhead lifting for ADLs. Target Visit 24 PT Problem 5 PT Problem #5 Impaired Functional Mobil PT Goal 1 Goal The patient will demonstrate the ability to ambulate 1,000 feet during the 6 minute walk test to improve community ambulation. Target Visit 24 Progress Not Met Comment Continue
--- NOTE | 2023-10-25 16:56 | PTOPPROG ---
Assessment and note entered by Leeann Frazier, PT Evaluation Information Assessment Status Progress Diagnosis Cervicalgia, Thoracic Back Pain, Low Back Pain Onset 08/10/23 Subjective Information Kierra Bonner reports she has been very busy over the holidays and has not been able to make it in to PT or the chiropractor. She does feel PT helps and her lower back pain has been more manageable lately but her left upper back and neck has been more painful. She is noting pain starts in the left side of the neck and radiates out to the shoulder and shoulder blade then down to her elbow . She has been using her left UE more due to multiple surgeries on her right hand. She also notes stiffness in her back if she sits too much and pain in the lower back if she walks too much. Assessment PT Clinical Summary Kierra Bonner presents to PT after being absent for one month. She is reporting ongoing neck, upper back, and lower back pain however, pain has been more prominent in the neck and radiates to the left shoulder and elbow. She is reporting less lower back pain overall. She demonstrates decreased and painful cervical and left shoulder AROM, decreased lumbar AROM, decreased left shoulder and core strength, decreased posture, and decreased functional abilities. She will continue to benefit from skilled PT to further address ongoing limitations with her cervical, thoracic, and lumbar spine. Plan of Care Interventions Electrical Stimulation,Hot Pack/Cold Pack,Manual Therapy,Neuro Re-education,Patient/Caregiver Educati,Therapeutic Activities,Therapeutic Exercise PT Services Indicated Yes Treatment Frequency and Continue skilled PT 2 times a week for 5 visits Duration These treatments will address the objective and functional deficits as defined above. The patient will be advanced safely and appropriately in order for the patient to progress towards his/her prior level of function. Additional exercises will be introduced and as well as a comprehensive home exercise program upon discharge, if needed, ?to ensure carryover of functional gains achieved in the clinic. This treatment plan has been reviewed and agreement upon by the patient.
--- NOTE | 2023-11-01 09:56 | PCPTNOTE ---
patient called and cancelled therapy today due to it being too cold outside to get out of her house. her next visits is scheduled for at 0915.
--- NOTE | 2023-11-03 10:12 | PCPTNOTE ---
No call, no show this date. Patient was called, but did not answer.
== END 2023-11-10 13:19 | disposition still patient (30) ==
LOC: CHSPT 11:06
PROVIDERS: Visit Provider Nurse Practitioner Family
DX: M54.2 Cervicalgia (principal); M54.50 Low back pain, unspecified
CPT/HCPCS: 97014; 97110; 97112; 97140; 97161; G0283

== ENCOUNTER 2023-10-27 13:52 | Outpatient (CLI) | payer OTHER, SELFPAY ==
--- NOTE | ~2023-10-27 | XR_ITS ---
XR thoracic spine 3V DATE: 10/27/2023 14:52 INDICATION: Mid back pain, neck pain for years TECHNIQUE: AP, lateral, swimmer views COMPARISON: None FINDINGS: There is minimal levoscoliosis of the thoracic spine. There is diffuse idiopathic skeletal hyperostosis. No fracture or dislocation or bone destruction. The thoracic pedicles are intact. No paraspinal soft tissue thickening. Surgical clips, right upper quadrant, likely due to cholecystectomy. IMPRESSION: Minimal levoscoliosis Diffuse idiopathic skeletal hyperostosis of the thoracic spine Reviewed, dictated and finalized at location L. [employer]
--- NOTE | ~2023-10-27 | XR_ITS ---
XR cervical spine min 6V DATE: 10/27/2023 14:53 INDICATION: Neck pain, mid back pain for many years. No injury. TECHNIQUE: AP, open-mouth, swimmer's and flexion, extension and neutral lateral views COMPARISON: None FINDINGS: C1 and C2 are normally aligned and the odontoid process is intact. There is slight anterolisthesis at C2-3, C3-4 and C4-5, stable in flexion, extension and neutral. C2-3, C3-4 and C4-5 interspaces are well preserved. There is mild loss of interspace height and prominent anterior spurring at C5-6 and C6-7. There is uncovertebral joint spurring in the mid and lower cervical spine and degenerative spurring o f the apophyseal joints. No fracture or dislocation or locked facet or prevertebral soft tissue swelling. IMPRESSION: Moderate cervical spondylosis Reviewed, dictated and finalized at location L. [employer]
[2023-10-27 15:11] LABS: CRP < 0.5 mg/dL (0.0-0.9)
[2023-10-27 15:28] LABS: Erythrocyte Sedimentation Rate 32 mm/hr (0-20)
== END 2023-10-27 13:53 | disposition home or self-care (01) ==
LOC: CHSLAB 13:55
PROVIDERS: PCP Nurse Practitioner; Visit Provider Nurse Practitioner Family
DX: M54.50 Low back pain, unspecified (principal); M54.6 Pain in thoracic spine; M54.2 Cervicalgia; M41.84 Other forms of scoliosis, thoracic region; M48.14 Ankylosing hyperostosis [Forestier], thoracic region; M43.02 Spondylolysis, cervical region
CPT/HCPCS: 36415; 72052; 72072; 85652; 86140

== ENCOUNTER 2023-11-15 13:23 | Outpatient (RCR) | payer OTHER, SELFPAY ==
--- NOTE | 2023-11-15 14:34 | OPREHPOC ---
Outpatient Therapy Plan of Care This is a Multidisciplinary Plan of Care that may contain components documented by all disciplines (PT, OT, and ST.) PT Problem 1 PT Problem #1 Knowledge Deficit PT Goal 1 Goal The patient will be independent in a home exercise program to continue after discharge from skilled PT. Target Visit 24 Progress Met Comment . Comment continue PT Problem 2 PT Problem #2 Pain PT Goal 1 Goal The patient will report no greater than 2/10 neck pain with ADLs. The patient will report no greater than 2/10 low back pain with ADLs. Target Visit 16 Progress Not Met Comment . Comment continue PT Goal 2 Progress Not Met PT Problem 3 PT Problem #3 Impaired Range of Motion PT Goal 1 Goal The patient will demonstrate 50 degrees of cervical rotation to improve ability to drive. The patient will demonstrate 40 degrees of lumbar flexion to improve ability to dress the LE. met Target Visit 16 Progress Partially Met Comment continue Comment continue PT Problem 4 PT Problem #4 Impaired Flexibility PT Goal 1 Goal The patient will demonstrate 4-/5 or greater strength in bilateral hip flexors, abductors, and extensors to improve ability to perform daily activities. Target Visit 24 Progress Not Met Comment . Comment continue PT Goal 2 Goal New goal: The patient will demonstrate 4/5 left shoulder flexion and abduction strength to perform overhead lifting for ADLs. The patient will demonstrate 4+/5 bilateral hip flexion and abduction strength. The patient will demonstrate 4+/5 bilateral elbow strength overall Target Visit
--- NOTE | 2023-11-15 14:34 | PTOPREEVAL ---
Assessment and note entered by JT File, PT Evaluation Information Assessment Status Re-evaluation Diagnosis Cervicalgia, Thoracic Back Pain, Low Back Pain Onset 08/10/23 Subjective Information patient reports she is frequently moving the neck all directions at home. she reports she does shoulder rolling, and stretches the chest/pecs in the doorway. she reports she does leg lifts laying in supine. she reports she also works on lunges when standing. she reports she has less pain/ improvements in condition with an ice pack. she reports she is unsure if heat makes it better. she reports ice makes it feel better compared to heat . she reports she is also trying to eat better to improve her health. she reports she has increased pain/symptoms with walking (up and down the block) , sitting, and standing too long. she reports she walked a block yesterday, but was afraid to do any longer/additional distance. she reports she has been limping more on the R LE due to her ankles. she reports she has acquired new shoes to help. she reports she thinks PT has helped. she reports when she was doing chiropractic and PT both she was doing really well, but has stopped chiropractic due to the and s. she reports therapy makes her exercise which keeps her from being stiff, and reports she has felt stronger. Reported Pain Level Pain Score 4,4,4: Self Report Pain Score 4,4,3: Self Report Assessment PT Clinical Summary mrs. eldridge presents to skilled PT services for her 12th skilled therapy visit for neck pain, low back pain, L shoulder pain, and functional decline. she presents today with little to no improvement in cervical rom, improvement in lumbar flexion rom , improvement in bilateral hip strength, continued weakness and decreased L UE strength, and decreased shoulder rom. patient has DISH of the thoracic spine, and continued symptoms of L cervical radiculopathy. she also displays symptoms consistent with L medial epicondylalgia. she is limited in functional activity performance and endurance due to her pain, weakness, and fear of pain. at this time, due to mixed progress in goals achievement, and continued deficits in functional mobility, she would benefit from continued skilled PT. however, continuation will be at a lower frequency to trial workin
--- NOTE | 2023-11-23 11:33 | OPREHPOC ---
Outpatient Therapy Plan of Care This is a Multidisciplinary Plan of Care that may contain components documented by all disciplines (PT, OT, and ST.) PT Problem 1 PT Problem #1 Knowledge Deficit PT Goal 1 Goal The patient will be independent in a home exercise program to continue after discharge from skilled PT. Target Visit 24 Progress Met Comment . PT Problem 2 PT Problem #2 Pain PT Goal 1 Goal The patient will report no greater than 2/10 neck pain with ADLs. The patient will report no greater than 2/10 low back pain with ADLs. Target Visit 16 Progress Not Met Comment . PT Goal 2 Progress Not Met PT Problem 3 PT Problem #3 Impaired Range of Motion PT Goal 1 Goal The patient will demonstrate 50 degrees of cervical rotation to improve ability to drive. The patient will demonstrate 40 degrees of lumbar flexion to improve ability to dress the LE. met Target Visit 16 Progress Partially Met Comment continue PT Problem 4 PT Problem #4 Impaired Flexibility PT Goal 1 Goal The patient will demonstrate 4-/5 or greater strength in bilateral hip flexors, abductors, and extensors to improve ability to perform daily activities. Target Visit 24 Progress Not Met Comment . PT Goal 2 Goal New goal: The patient will demonstrate 4/5 left shoulder flexion and abduction strength to perform overhead lifting for ADLs. The patient will demonstrate 4+/5 bilateral hip flexion and abduction strength. The patient will demonstrate 4+/5 bilateral elbow strength overall Target Visit 16 Progress Not Met PT Problem 5 PT Problem #5 Impaired Functional Mobil PT Goal 1 Goal The patient will demonstrate the ability
--- NOTE | 2023-11-23 11:33 | PTOPDC ---
Assessment and note entered by JT File, PT Evaluation Information Assessment Status Discharge Diagnosis Cervicalgia, Thoracic Back Pain, Low Back Pain Onset 08/10/23 Subjective Information patient reports she is not too bad today. she reports she continues to have the same complaints about the elbow. she reports the lower back is better. she reports she is having an MRI this afternoon in [place] for the neck and upper back. she reports she returns also to see [place]' s office this coming week for the shoulder and the elbow. she reports since her last therapy visit, she is less tight, but still has pain. Reported Pain Level Pain Score 4,4,4: Self Report Assessment PT Clinical Summary mrs. eldridge was approved by her insurance for 1 additional visit per her last re-evaluation. she was seen for that visit today. she has mad no additional progress towards goals since her last re-evaluation. she is going to have additional testing via imaging for the neck and the L UE. due to a lack of progress and limited visits approved , patient will be DC'd from skilled PT services at this time. she will continue with her HEP independent at home. Plan of Care PT Services Indicated Yes
== END 2023-11-23 13:12 | disposition home or self-care (01) ==
LOC: CHSPT 13:23
PROVIDERS: Visit Provider Nurse Practitioner Family
DX: M54.50 Low back pain, unspecified (principal); M54.2 Cervicalgia; M54.6 Pain in thoracic spine
CPT/HCPCS: 97014; 97110; 97140; G0283

== ENCOUNTER 2024-01-02 16:17 | Emergency (ER) | payer OTHER, SELFPAY ==
--- NOTE | ~2024-01-02 | CT_ITS ---
EXAMINATION: CT abdomen pelvis wo con DATE: 01/02/2024 16:57 INDICATION: Right flank pain TECHNIQUE: Computed tomography (CT) of the abdomen and pelvis was performed without intravenous contr ast. Automated exposure control and iterative reconstruction technique were employed. The dose-length product was 1367.47 mGy-cm. COMPARISON: 06/10/2023. FINDINGS: Lower thorax: Unremarkable Liver: Low-density parenchyma. Biliary/Gallbladder: Gallbladder is absent. No bile duct dilation. Pancreas: No mass or duct dilation. Spleen: Normal. Adrenals:No mass. Kidneys: No suspicious mass, obstructing stone, or hydronephrosis. GI tract: No small or large bowel dilation. Normal appendix. Mesentery/Peritoneum: No ascites, mass, or free air. Retroperitoneum: No mass. Atherosclerotic abdominal aortic and/or arterial calcifications. Pelvis: Pelvic organs are within normal limits. Soft Tissues: Soft tissues and body wall unremarkable. Bones: No acute osseous finding. IMPRESSION: Hepatic steatosis. Otherwise unremarkable CT abdomen pelvis findings. Reviewed, dictated and finalized at location K.
[2024-01-02 16:17] VITALS: BP 126/83; PULSE 80; RESP 18; TEMP 36.6; O2SAT 97
--- NOTE | 2024-01-02 16:29 | ED.ABDPAIN ---
HPI - Abdominal Pain General Chief Complaint: Urogenital-Female Stated Complaint: right flank pain Time Seen by Provider: 01/02/24 16:20 History of Present Illness HPI narrative: This is a 63-year-old female, history of kidney stones, cholelithiasis status post cholecystectomy hypertension, who presents emergency department complaining of right flank pain. The patient states she has noticed increased urinary frequency with a past rates. over the past few days, she has noticed intermittent right flank pain, described as sharp and stabbing, rated 8/10 without radiation. This worsened over night. She states this feels similar to previous episodes of kidney stones. She tried [id number] Tylenol and ibuprofen without improvement. She states a urinalysis obtained at primary care doctor's office showed hematuria. She has no other complaints at this time. The patient's primary care provider contacted the ED stating a urinalysis demonstrated hematuria. She was sent to the ED for pain control, labs and imaging. Related Data Home Medications Medication Instructions Recorded Confirmed metformin 1,000 mg tablet 1,000 mg PO DAILY 09/29/21 01/02/24 bupropion HCl 300 mg 24 hr tablet, 300 tablet PO DAILY 04/15/22 01/02/24 extended release lisinopril 10 1 tablet PO DAILY 04/15/22 01/02/24 mg-hydrochlorothiazide 12.5 mg tablet cyanocobalamin (vitamin B-12) 1,000 mcg PO DAILY 08/31/22 01/02/24 1,000 mcg capsule gabapentin 100 mg capsule 100 mg PO TID 08/31/22 01/02/24 dulaglutide 0.75 mg/0.5 mL 0.75 mg subcut WEEKLY 09/02/23 01/02/24 subcutaneous pen injector (Trulicity) Allergies Allergy/AdvReac Type Severity Reaction Status Date / Time Sulfa (Sulfonamide Allergy Intermediate Rash Verified 01/02/24 16:23 Antibiotics) morphine Allergy Itching Verified 01/02/24 16:23 Review of Systems Review of Systems: CONSTITUTIONAL: Denies fever, chills, or sweats. CARDIOVASCULAR: Denies chest pain, palpitations, or edema. RESPIRATORY: Denies cough or dyspnea. GASTROINTESTINAL: Right flank pain Denies nausea, vomiting, or diarrhea. GENITOURINARY: Increased urinary frequency Denies dysuria or hematuria. SKIN: Denies rash or itching. MUSCULOSKELETAL: Denies back pain, joint pain, or myalgia. NEUROLOGIC: Denies headache, numbness, dizziness, or weakness. PSYCHIATRIC: Denies anxiety or depression. [facility] Past Medical History Medical History Anxiety Arthritis Asthma Chills [facility] DJD(carpometacarpal degenerative joint disease), localized primary CTS (carpal tunnel syndrome) Degenerative joint disease of elbow Depression Diabetes Diabetes Ear pain Fever Fibromyalgia Hair loss HTN (hypertension) Memory loss Patellofemoral syndrome Pes cavus Right elbow pain Right hand pain Right knee DJD Right knee pain Screening mammogram, encounter for Urinary frequency UTI (urinary tract infection) Surgical History Surgical History H/O arthroplasty History of appendectomy per patient's questionnaire History of cholecystectomy per patient's questionnaire History of partial hysterectomy per patient's questionnaire Family History Family History Other Arthritis Depression Diabetes mellitus Hypertension Neuropathy Social History Social History Smoking status: Former smoker Tobacco type: cigarettes Second hand tobacco smoke exposure: No Smoking end date: 08/17/16 Additional smoking assessment comments: Quit in 2016 Alcohol intake: never Substance use: never Substance use type: does not use Living arrangements: other Additional living arrangements comments: Occupation/Education: retired 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
--- NOTE | 2024-01-02 16:37 | PC.NURSE ---
IV started. RN informed Pt what medications were ordered. Pt states that she cannot have morphine because it makes her itch. RN explained that ERP also ordered benadryl to prevent itching. Pt still unsure about taking morphine. RN explained that ER also plans to give toradol as soon as labs are back and he can confirm adequate kidney function. Pt states that she will wait for toradol.
[2024-01-02 16:41] LABS: Basophils Absolute Auto 0.03 K/mm3 (0.00-0.10); Basophils Percent Auto 0.4 % (0.0-1.0); Eosinophils Absolute Auto 0.11 K/mm3 (0.02-0.50); Eosinophils Percent Auto 1.4 % (1.0-6.0); Hematocrit 39.2 % (35.0-49.0); Hemoglobin 13.3 g/dL (12.0-15.0); Immature Granulocyte Absolute 0.03 K/mm3 (0.00-0.00); Immature Granulocyte Percent A 0.4 % (0.0-0.0); Lymphocytes Absolute Auto 4.38 K/mm3 (1.10-4.50); Lymphocytes Percent Auto 55.4 % (18.0-42.0); Mean Corpuscular HGB Conc 33.9 g/dL (32-36); Mean Corpuscular Hemoglobin 30.8 pg (27.0-31.0); Mean Corpuscular Volume 90.7 fL (78.0-102.0); Monocytes Absolute Auto 0.66 K/mm3 (0.10-0.90); Monocytes Percent Auto 8.4 % (2.0-11.0); Neutrophils Absolute Auto 2.69 K/mm3 (1.70-7.20); Platelet Count Result 286 K/mm3 (150-420); Red Blood Count 4.32 M/mm3 (4.20-5.40); Red Cell Distribution Width 12.6 % (11.6-14.4); White Blood Count 7.9 K/mm3 (4.8-10.8)
[2024-01-02 16:58] LABS: Lipase 33 U/L (16-77)
[2024-01-02 17:02] LABS: Alanine Aminotransferase 48 U/L (14-59); Albumin Level 3.9 g/dL (3.4-5.0); Alkaline Phosphatase 55 U/L (46-116); Anion Gap 13 mmol/L (8-16); Aspartate Amino Transferase 31 U/L (15-37); Bilirubin,Total 0.6 mg/dL (0.00-1.00); Blood Urea Nitrogen 14 mg/dL (7-18); Calcium 9.2 mg/dL (8.5-10.1); Carbon Dioxide 26 mmol/L (21-32); Chloride 99 mmol/L (98-108); Estimated CRCL calculation 63 ml/min; Estimated Glomerular Filt Rate 51; Glucose 103 mg/dL (70-99); Osmolality Calculated 286 mOsm/kg (285-295); Potassium 3.7 mmol/L (3.5-5.1); Sodium 138 mmol/L (136-145); Total Protein 7.7 g/dL (6.4-8.2)
[2024-01-02] MEDS: KETOROLAC 15 MG/ML VIAL (*BKC) IV PUSH (17:25)
[2024-01-02 17:38] LABS: Appearance Urine Clear (Clear); Bilirubin Urine Negative (Negative); Blood Urine Negative (Negative); Color Urine Light Yellow (Yellow); Glucose Urine UA Negative (Negative); Ketones Urine Negative (Negative); Leukocyte Esterase Ur Negative LEU/UL (Negative); Nitrate Urine Negative (Negative); Protein Urine Negative (Negative); Specific Grav Ur <= 1.005 (1.010-1.020); Urobilinogen Urine 0.2 mg/dL (0.2-1.0)
[2024-01-02 17:40] LABS: Add Urine Microscopic? NO
[2024-01-02 18:07] VITALS: BP 124/83; PULSE 74; RESP 18; O2SAT 97
== END 2024-01-02 18:09 | disposition home or self-care (01) ==
PROVIDERS: Emergency Provider Preventive Medicine Aerospace Medicine; PCP Physician Assistant
DX: R10.9 Unspecified abdominal pain (principal); E11.9 Type 2 diabetes mellitus without complications; I10 Essential (primary) hypertension; Z79.84 Long term (current) use of oral hypoglycemic drugs; Z79.899 Other long term (current) drug therapy; Z87.891 Personal history of nicotine dependence
CPT/HCPCS: 36415; 74176; 80053; 81003; 83690; 85025; 96374; 99284; J1885

== ENCOUNTER 2024-01-20 10:57 | Outpatient (CLI) | payer OTHER, SELFPAY ==
[2024-01-20 11:39] LABS: Basophils Absolute Auto 0.04 K/mm3 (0.00-0.10); Basophils Percent Auto 0.5 % (0.0-1.0); Eosinophils Absolute Auto 0.14 K/mm3 (0.02-0.50); Eosinophils Percent Auto 1.7 % (1.0-6.0); Hematocrit 40.6 % (35.0-49.0); Hemoglobin 13.8 g/dL (12.0-15.0); Immature Granulocyte Absolute 0.03 K/mm3 (0.00-0.00); Immature Granulocyte Percent A 0.4 % (0.0-0.0); Lymphocytes Absolute Auto 3.34 K/mm3 (1.10-4.50); Lymphocytes Percent Auto 41.4 % (18.0-42.0); Mean Corpuscular Hemoglobin 31.4 pg (27.0-31.0); Mean Corpuscular Volume 92.3 fL (78.0-102.0); Monocytes Absolute Auto 0.75 K/mm3 (0.10-0.90); Monocytes Percent Auto 9.3 % (2.0-11.0); Neutrophils Absolute Auto 3.76 K/mm3 (1.70-7.20); Neutrophils Percent Auto 46.7 % (50.0-70.0); Platelet Count Result 268 K/mm3 (150-420); Red Cell Distribution Width 12.6 % (11.6-14.4); White Blood Count 8.1 K/mm3 (4.8-10.8)
[2024-01-20 12:22] LABS: Ferritin 106 ng/mL (8-252); Iron 59 ug/dL (50-170); Percent Iron Saturation 16 % (12-57)
[2024-01-24 09:01] LABS: Transferrin 304 mg/dL (188-341)
[2024-01-25 10:13] LABS: HLA B27 Negative (Negative)
== END 2024-01-20 10:58 | disposition home or self-care (01) ==
PROVIDERS: PCP Nurse Practitioner Family; Visit Provider Internal Medicine
DX: M54.6 Pain in thoracic spine (principal); M54.50 Low back pain, unspecified; M54.2 Cervicalgia
CPT/HCPCS: 36415; 82728; 83540; 83550; 84466; 85025; 86812

== ENCOUNTER 2024-11-08 14:16 | Outpatient (CLI) | payer OTHER, SELFPAY ==
[2024-11-08 14:38] LABS: Basophils Absolute Auto 0.05 K/mm3 (0.00-0.10); Basophils Percent Auto 0.6 % (0.0-1.0); Eosinophils Absolute Auto 0.18 K/mm3 (0.02-0.50); Eosinophils Percent Auto 2.1 % (1.0-6.0); Hematocrit 39.8 % (35.0-49.0); Hemoglobin 13.1 g/dL (12.0-15.0); Immature Granulocyte Absolute 0.03 K/mm3 (0.00-0.00); Immature Granulocyte Percent A 0.3 % (0.0-0.0); Lymphocytes Absolute Auto 4.06 K/mm3 (1.10-4.50); Lymphocytes Percent Auto 47.3 % (18.0-42.0); Mean Corpuscular HGB Conc 32.9 g/dL (32-36); Mean Corpuscular Hemoglobin 30.3 pg (27.0-31.0); Mean Corpuscular Volume 92.1 fL (78.0-102.0); Mean Platelet Volume 9.1 fl (9.2-11.8); Monocytes Percent Auto 9.3 % (2.0-11.0); Neutrophils Absolute Auto 3.47 K/mm3 (1.70-7.20); Neutrophils Percent Auto 40.4 % (50.0-70.0); Platelet Count Result 266 K/mm3 (150-420); Red Blood Count 4.32 M/mm3 (4.20-5.40); Red Cell Distribution Width 12.4 % (11.6-14.4); White Blood Count 8.6 K/mm3 (4.8-10.8)
[2024-11-08 15:43] LABS: Ferritin 194 ng/mL (8-252); Iron 93 ug/dL (50-170); Percent Iron Saturation 30 % (12-57)
--- OUTSIDE RECORDS SUMMARY | 2024-11-09 05:40 | XMS_ITS ---
Care Plan - [facility] Created on: November 09, 2024 GENESIS, NELSON Mayo : 1960 Sex: Female Author Organization [facility] Address [address] [place] [address] Phone Care Team Providers Care Cylinder Dyer Name Role Phone MATTHEWJENNIE GRACE Unavailable [phone] DELMI ANDUJAR Unavailable [phone] ELBERT COX MD Unavailable [phone] KEYONA SANCHEZ Primary Care Provider [phone]
--- OUTSIDE RECORDS SUMMARY | 2024-11-09 05:40 | XMS_ITS | Clinical Summary ---
Author Organization [facility] Address [address] [place] [address] Phone Care Team Providers Care Natural Resources Instructor Name Role Phone EDWINA JENNIE YODER Unavailable [phone] DELMI ANDUJAR Unavailable [phone] ELBERT COX MD Unavailable [phone] KEYONA SANCHEZ Primary Care Provider [phone] Reason for Visit and Chief Complaint [Patient Encounter] Problems Includes: Problems addressed during this encounter and other active Problems All Visits Onset Date Resolved Date Provider Condition S tatus Depression Unknown YOUNG Timmons ISI AMMUNITION ASSEMBLY I LABORER-FPA, LOAD CHECKER-BC Active Last Documented On 3 12:47PM ; [facility] Asthma Unknown YOUNG Timmons ISI AMMUNITION ASSEMBLY I LABORER-FPA, LOAD CHECKER-BC Active Last Documented On 4 11:21AM ; [facility] Carotid Artery Stenosis Unknown YOUNG Timmons KU LP AMMUNITION ASSEMBLY I LABORER-FPA, LOAD CHECKER-BC Active Last Documented On 4 11:21AM ; [facility] Diabetes Mellitus Unknown YOUNG Timmons ISI APR N-FPA, LOAD CHECKER-BC Active Last Documented On 3 12:46PM ; [facility] Generalized Anxiety Disorder Unknown YOUNG Timmons ISI AMMUNITION ASSEMBLY I LABORER-FPA, LOAD CHECKER-BC Active Last Documented On 4 11:20AM ; [facility] Hemochromatosis Unknown YOUNG Timmons ISI AMMUNITION ASSEMBLY I LABORER- FPA, LOAD CHECKER-BC Active Last Documented On 3 12:46PM ; [facility] Essential Hypertension Unknown YOUNG Timmons LEEL P AMMUNITION ASSEMBLY I LABORER-FPA, LOAD CHECKER-BC Active Last Documented On 3 12:47PM ; [facility] Obesity Unknown YOUNG Timmons ISI AMMUNITION ASSEMBLY I LABORER-FPA, LOAD CHECKER-BC Active Last Documented On 4 11:21AM ; [facility] Nonorganic Sleep Apnea Obstructive Unknown Josef Timmons ISI AMMUNITION ASSEMBLY I LABORER-FPA, LOAD CHECKER-BC Active Last Documented On 4 11:21AM ; [facility] Osteoarthritis Unknown YOUNG Timmons ISI AMMUNITION ASSEMBLY I LABORER-F PA, LOAD CHECKER-BC Active Last Documented On 3 12:46PM ; [facility] Plan of Treatment No Plan of Treatment Recorded Assessments Includes: Assessments from this encounter No Assessments Recorded Medical Equipment - Implanted Devices Includes: Current Devices No Medical Equipment Recorded Medications Includes: Medications discussed during this encounter and other current Medications New / Renewed during this visit GRISEL MONTEJO MD on 12/22/2023 ALPRAZolam 0.25 MG Oral Tablet Provider: GRISEL MONTEJO MD 1 day supply: 2 tablet, 0 refills Diagnosis: Anxiety disorder, unspecified Take 1 tablet PO one hour pr ior to procedure start time. Take 2nd tablet as needed 30 minutes prior to procedure start time. Pharmacy: [facility]/pharmacy #[id number], [address] - Last Documented On 4 11:07AM By Virginia ARROYO ; [facility] Current Medications (continue as prescribed) Pregabalin 50 MG Oral Capsule 02/21/2024 Provider: CHRISTIAN VILLATOROBC Diagnosis: Radiculopathy, c ervical region TAKE 1 CAPSULE BY MOUTH TWICE A DAY Last Documented On 4 4:13PM By YOUNG MENDOZA ; [facility] Pregabalin 50 MG Oral Capsule 02/03/2024 Provider: CHRISTIAN VILLATOROBC Diagnosis: Lesion of ulnar nerve, left upper limb 1 CAPSULE TWO TIMES A DAY Last Documented On 4 10:48AM By YOUNG MENDOZA ; [facility] Acetaminophen 500 MG Oral Tablet 02/03/2024 Provider : Diagnosis: Last Documented On 4 10:39AM By YOUNG [facility] ; [facility] tiZANidine HCl 2 MG Oral Tablet 02/03/2024 Provider: YOUNG [facility]- Diagnosis: Cervicalgia TAKE 1 TABLET BY MOUTH TWICE A DAY NEEDED FOR BACK OR NECK PAIN Last Documented On 4 10:48AM By YOUNG [facility] ; [facility] Baclofen 5 MG Oral Tablet 08/09/2023 Provider: Diagnosis: 1-2 tablets as needed. Last Documented On 3 12:52PM By YOUNG [facility] ; [facility] buPROPion HCl ER (XL) 300 MG Oral Tablet Extended Release 24 Hour 07/03/2023 Provider: Diagnosis: Last Documented On 3 12:52PM By YOUNG [facility] ; [facility] Trulicity 0.75 MG/0.5ML Subcutaneous Solution Pen-inje ctor 06/23/2023 Provider: Diagnosis: Last Documented On 3 12:52PM By YOUNG [facility] ; [facility] Lisinopril-hydroCHLOROthiazi de 10-12.5 MG Oral Tablet 06/13/2023 Provider: JENNIE YODER Diagnosis: Last Documented On 3 12:52PM By YOUNG [facility] ; [facility] metFORMIN HCl 500 MG Oral Tablet 05/30/2023 Provider : Diagnosis: Last Documented On 3 12:52PM By YOUNG [facility] ; [facility] Spiriva Respimat 1.25 MCG/ACT Inhalation Aerosol Solut ion 05/27/2023 Provider: Diagnosis: Last Documented On 3 12:52PM By YOUNG [facility] ; [facility] Medications Administered Includes: Administered Medications from this encounter No Administered Medications Recorded Results Includes: Results discussed during this encounter No Results Recorded For Specified Dates History of Present Illness Includes: History of Present Illness from this encounter No History of Present Illness Recorded Social History No Social History Recorded - Smoking Status Unknown Medical History Includes: Medical History addressed during this encounter No Medical History Recorded Family History Includes: Family History addressed during this encounter No Family History Recorded Review of Systems Includes: Review of Systems from this encounter No Review of Systems Recorded Mental Status Includes: Mental Status from this encounter No Mental Status Recorded Functional Status Includes: Functional Status from this encounter No Functional Status Recorded Physical Exam Includes: Physical Exam from this encounter No Physical Exam Recorded Allergies Includes: Active Allergies Substance Type Reaction Onset Date Resolved Date Statu s Morphine Sulfate Allergy Skin Rashes / E ruption of skin 08/09/2023 Active Last Documented On 10:11AM ; [facility] Encounters Encounter Provider Location Date Check-In Time Check-Out Time Diagnosis [Patient Encounter] GRISEL MONTEJO MD 12/22/2023 10:24AM 11:59PM Insurance Includes: Active Insurance Policies Plan Name Member ID Group # Subscriber Relationship Effect ruben Dates - [facility] [id number] NELSON goss Clinical Notes Includes: Clinical Notes from this encounter No Clinical Notes Recorded
--- OUTSIDE RECORDS SUMMARY | 2024-11-09 05:40 | XMS_ITS | Clinical Summary ---
Author Organization 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 Name Role Phone EDWINA JENNIE YODER Unavailable [phone] DELMI ANDUJAR Unavailable [phone] ELBERT COX MD Unavailable [phone] KEYONA SANCHEZ Primary Care Provider [phone] Reason for Visit and Chief Complaint POST PROCEDURE PHONE CALL Problems Includes: Problems addressed during this encounter and other active Problems All Visits Onset Date Resolved Date Provider Condition S tatus Depression Unknown YOUNG Timmons ISI LINER CHECKER-FPA, POCKET CREASER-BC Active Last Documented On 3 12:47PM ; [facility] Asthma Unknown YOUNG Timmons ISI LINER CHECKER-FPA, POCKET CREASER-BC Active Last Documented On 4 11:21AM ; [facility] Carotid Artery Stenosis Unknown YOUNG Timmons K[employer] LINER CHECKER-FPA, POCKET CREASER-BC Active Last Documented On 4 11:21AM ; [facility] Diabetes Mellitus Unknown YOUNG Timmons ISI APR N-FPA, POCKET CREASER-BC Active Last Documented On 3 12:46PM ; [facility] Generalized Anxiety Disorder Unknown YOUNG Timmons ISI LINER CHECKER-FPA, POCKET CREASER-BC Active Last Documented On 4 11:20AM ; [facility] Hemochromatosis Unknown YOUNG Timmons ISI LINER CHECKER- FPA, POCKET CREASER-BC Active Last Documented On 3 12:46PM ; [facility] Essential Hypertension Unknown YOUNG Timmons LEEL P LINER CHECKER-FPA, POCKET CREASER-BC Active Last Documented On 3 12:47PM ; [facility] Obesity Unknown YOUNG Timmons ISI LINER CHECKER-FPA, POCKET CREASER-BC Active Last Documented On 4 11:21AM ; [facility] Nonorganic Sleep Apnea Obstructive Unknown Josef Timmons ISI LINER CHECKER-FPA, POCKET CREASER-BC Active Last Documented On 4 11:21AM ; [facility] Osteoarthritis Unknown YOUNG Timmons ISI LINER CHECKER-F PA, POCKET CREASER-BC Active Last Documented On 3 12:46PM ; [facility] Plan of Treatment No Plan of Treatment Recorded Assessments Includes: Assessments from this encounter No Assessments Recorded Medical Equipment - Implanted Devices Includes: Current Devices No Medical Equipment Recorded Medications Includes: Medications discussed during this encounter and other current Medications Current Medications (continue as prescribed) Pregabalin 50 MG Oral Capsule 02/21/2024 Provider: REJI VILLATORO Diagnosis: Radiculopathy, c ervical region TAKE 1 CAPSULE BY MOUTH TWICE A DAY Last Documented On 4 4:13PM By YOUNG MENDOZA ; [facility] Pregabalin 50 MG Oral Capsule 02/03/2024 Provider: REJI VILLATORO Diagnosis: Lesion of ulnar nerve, left upper limb 1 CAPSULE TWO TIMES A DAY Last Documented On 4 10:48AM By YOUNG MENDOZA ; [facility] Acetaminophen 500 MG Oral Tablet 02/03/2024 Provider : Diagnosis: Last Documented On 4 10:39AM By YOUNG MENDOZA ; [facility] tiZANidine HCl 2 MG Oral Tablet 02/03/2024 Provider: REJI BESS Diagnosis: Cervicalgia TAKE 1 TABLET BY MOUTH TWICE A DAY NEEDED FOR BACK OR NECK PAIN Last Documented On 4 10:48AM By YOUNG MENDOZA ; [facility] Baclofen 5 MG Oral Tablet 08/09/2023 Provider: Diagnosis: 1-2 tablets as needed. Last Documented On 3 12:52PM By YOUNG LUNARUBEN ; [facility] buPROPion HCl ER (XL) 300 MG Oral Tablet Extended Release 24 Hour 07/03/2023 Provider: Diagnosis: Last Documented On 3 12:52PM By YOUNG MENDOZA ; [facility] Trulicity 0.75 MG/0.5ML Subcutaneous Solution Pen-inje ctor 06/23/2023 Provider: Diagnosis: Last Documented On 3 12:52PM By YOUNG LUNAPMEG ; [facility] Lisinopril-hydroCHLOROthiazi de 10-12.5 MG Oral Tablet 06/13/2023 Provider: JENNIE YODER Diagnosis: Last Documented On 3 12:52PM [facility] ; [facility] metFORMIN HCl 500 MG Oral Tablet 05/30/2023 Provider : Diagnosis: Last Documented On 3 12:52PM By [facility] ; [facility] Spiriva Respimat 1.25 MCG/ACT Inhalation Aerosol Solut ion 05/27/2023 Provider: Diagnosis: Last Documented On 3 12:52PM By [facility] ; [facility] Medications Administered Includes: Administered Medications from this encounter No Administered Medications Recorded Results Includes: Results discussed during this encounter No Results Recorded For Specified Dates History of Present Illness Includes: History of Present Illness from this encounter No History of Present Illness Recorded Social History Description Last Updated Former smoker 08/09/2023 Last Documented On 4 9:36AM ; [facility] Difficulty walking 08/09/2023 Last Documented On 4 9:36AM ; [facility] No consumption of alcohol 08/09/2023 Last Documented On 4 9:36AM ; [facility] Not using drugs 08/09/2023 Last Documented On 4 9:36AM ; [facility] Smoking Status Unknown Procedures and Surgical History Surgical History Last Updated History of appendectomy 10/27/2023 Last Documented On 4 9:36AM ; [facility] History of cholecystectomy 10/27/2023 Last Documented On 4 9:36AM ; [facility] History of hysterectomy 10/27/2023 Last Documented On 4 9:36AM ; [facility] No Pacemaker 08/09/2023 Last Documented On 4 9:36AM ; [facility] Surgical / procedural histor y Sandu-hemochromatosis 09/07- [facility] -High blood pressure 08/09/2023 Last Documented On 4 9:36AM ; [facility] Medical History Includes: Medical History addressed during this encounter Description Last Updated Denies a fear of falling. 08/09/2023 Last Documented On 4 9:36AM ; [facility] Has had no fall in the last 12 months. 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 No Pain Pump 08/09/2023 Last Documented On 4 9:36AM ; [facility] No Spinal cord stimulator 08/09/2023 Last Documented On 4 9:36AM ; [facility] Physical therapy 08/09/2023 Last Documented On 4 9:36AM ; [facility] Please list all illnesses/co nditions you have been diagnosed with: High blood pressure, diabetes, arthritis, ankylosis spondylitis, depression, hemochromatosis 08/09/2023 Last Documented On 4 9:36AM ; [facility] Please list all surgeries: R ight thumb trapezium arthroplasty and carple tunnel surgery 01/13/2023 08/09/2023 Last Documented On 4 9:36AM ; [facility] Treatment with TENS unit 08/09/2023 Last Documented On 4 9:36AM ; [facility] Ultrasound May [id number] lymph node 08/09/2023 Last Documented On 4 9:36AM ; [facility] Wearing contact lenses 08/09/2023 Last Documented On 4 9:36AM ; [facility] X-rays October 2022 -hand ri ght-surgery 01/13/23-Dr Delmi Garcia trapezium thumb joint removed and carpal 08/09/2023 Last Documented On 4 9:36AM ; [facility] Family History Includes: Family History addressed during this encounter Description Last Updated Family history of ischemic heart disease 08/09/2023 Last Documented On 4 9:36AM ; [facility] Fraternal history of Arthritis 3 Last Documented On 4 9:36AM ; [facility] Maternal history of reported family hist ory of seizures 08/09/2023 Last Documented On 4 9:36AM ; [facility] Paternal history of family history of is chemic heart disease 08/09/2023 Last Documented On 4 9:36AM ; [facility] Review of Systems Includes: Review of Systems [...] of skin 08/09/2023 Active Last Documented On 4 10:11AM ; [facility] Encounters Encounter Provider Location Date Check-In Time Check-Out Time Diagnosis POST PROCEDURE PHONE CALL YOUNG SNOWDEN LINER CHECKER-FPA, POCKET CREASER-BC 12/27/2023 9:35AM 11:59PM Insurance Includes: Active Insurance Policies Plan Name Member ID Group # Subscriber Relationship Effect ruben Dates 1 - [facility] [id number] NELSON Cano f Clinical Notes Includes: Clinical Notes from this encounter * Progress note Date Encounter Last Documented by 12/27/2023 POST PROCEDURE PHONE CALL Last d ocumented on 12/27/2023; 9:42 AM, Diane Plummer RN; [facility] Top of Document Post-Procedural Patient Screening Questionnaire Date of Procedure: 12/22/23 Procedure: Leftward C6-7 interlaminar epidural 1. How have you felt since your last procedure? Doing much better. Still a little stiff, but pain is almost gone, has been using cold packs Improved Same Worse 2. Pain level prior to procedure? -03/26 3. Pain level currently? -12/24 4. How long after procedure did symptoms begin? Denies Same pain but worse New Symptoms ? If new, describe: Improving Staying the same Getting worse 5. Any post procedure issues with injection? Denies Heat Swelling Soreness Redness Streaking Injection site pain Bleeding Discharge/Drainage 6. Are you experiencing new numbness in the groin or saddle area? Yes No 7.New loss of bowel or bladder control? Yes No 8. Are you having any of the following symptoms? Denies Fever Chills Night Sweats Rigors/Shaking Chills Headaches Neck Stiffness Sensitivity to sound New muscle pain/Stiffness Weakness Nausea Vomiting Diarrhea Dizziness Rash Flushing Mood Irritability Blood Pressure changes Blood sugar changes Completed by Cyril Plummer RN 12/27/23 Active Problems & Conditions - Asthma - Carotid Artery Stenosis - Depression - Diabetes Mellitus - Essential Hypertension - Generalized Anxiety Disorder - Hemochromatosis - Nonorganic Sleep Apnea Obstructive - Obesity - Osteoarthritis Current Medication - Acetaminophen 500 MG Oral Tablet As needed., 0 days, 0 refills - ALPRAZolam 0.25 MG Oral Tablet Take 1 tablet PO one hour prior to procedure start time. Take 2nd tablet as needed 30 minutes prior to procedure start time., 1 days, 0 refills - Baclofen 5 MG Oral Tablet 1-2 tablets as needed., 0 days, 0 refills - buPROPion HCl ER (XL) 300 MG Oral Tablet Extended Release 24 Hour 30 days, 0 refills - [facility] Ibuprofen 200 MG Oral Tablet As needed., 0 days, 0 refills - Lisinopril-hydroCHLOROthiazide 10-12.5 MG Oral Tablet 90 days, 0 refills - metFORMIN HCl 500 MG Oral Tablet 90 days, 0 refills - Pregabalin 50 MG Oral Capsule 1 CAPSULE TWO TIMES A DAY, 14 days, 0 refills - Spiriva Respimat 1.25 MCG/ACT Inhalation Aerosol Solution 30 days, 0 refills - tiZANidine HCl 2 MG Oral Tablet TAKE 1 TABLET BY MOUTH TWICE A DAY NEEDED FOR BACK OR NECK PAIN, 30 days, 2 refills - Trulicity 0.75 MG/0.5ML Subcutaneous Solution Pen-injector 28 days, 0 refills Past Medical/Surgical History Reported: Injection/Nerve blocks, Deep muscle stimulation, child care leader, Treatment with TENS unit, Physical therapy, Message/Acupressure, Please list all illnesses/conditions you have been diagnosed with: High blood pressure, diabetes, arthritis, ankylosis spondylitis, depression, hemochromatosis, and Please list all surgeries: Right thumb trapezium arthroplasty and carple tunnel surgery 01/13/2023. Medical: Wearing contact lenses. No Spinal cord stimulator and no Pain Pump. Surgical / Procedural: Surgical / procedural history Sandu-hemochromatosis 09/07- [facility]- Annmarie Bonds -High blood pressure. No Pacemaker. Tests: X-rays October 2022 -hand right-surgery 01/13/23-Dr Delmi Garcia trapezium thumb joint removed and carpal, CT/MRI 06/10/2023 CT abdomen and pelvis - Emergency room visit back pain, and Ultrasound May [id number] lymph node. Physical Trauma: Has had no fall in the last 12 months. and Denies a fear of falling. Surgical: - Appendectomy - Cholecystectomy - Hysterectomy Social History Difficulty walking. Tobacco use: Former smoker. Alcohol: No consumption of alcohol. Drug Use: Not using drugs. Allergies - Morphine Sulfate Reaction: Skin Rashes / Eruption of skin Family History Ischemic heart disease Paternal: Ischemic heart disease Maternal: Reported family history of seizures Fraternal: Arthritis Care Team - EVERTON LEMONS-C - Primary Care - ELBERT COX MD - Hematology & Oncology - DELMI ANDUJAR - Orthopaedic Surgery - PABLO PEARSON Health Reminders - Assess Tobacco Use satisfied 12/27/2023.
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
--- OUTSIDE RECORDS SUMMARY | 2024-11-09 05:40 | XMS_ITS | Clinical Summary ---
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 Name Role Phone EDWINA JENNIE YODER Unavailable [phone] DELMI ANDUJAR Unavailable [phone] ELBERT COX MD Unavailable [phone] KEYONA SANCHEZ Primary Care Provider [phone] Reason for Visit and Chief Complaint * PHONE CALL Problems Includes: Problems addressed during this encounter and other active Problems All Visits Onset Date Resolved Date Provider Condition S tatus Depression Unknown YOUNG Timmons ISI LAUNDROMAT WORKER-FPA, SACK SEWER MACHINE-BC Active Last Documented On 3 12:47PM ; [facility] Asthma Unknown YOUNG Timmons ISI LAUNDROMAT WORKER-FPA, SACK SEWER MACHINE-BC Active Last Documented On 4 11:21AM ; [facility] Carotid Artery Stenosis Unknown YOUNG Shanelle KU LP LAUNDROMAT WORKER-FPA, SACK SEWER MACHINE-BC Active Last Documented On 4 11:21AM ; [facility] Diabetes Mellitus Unknown YOUNG Shanelle ISI APR N-FPA, SACK SEWER MACHINE-BC Active Last Documented On 3 12:46PM ; [facility] Generalized Anxiety Disorder Unknown YOUNG Shanelle ISI LAUNDROMAT WORKER-FPA, SACK SEWER MACHINE-BC Active Last Documented On 4 11:20AM ; [facility] Hemochromatosis Unknown YOUNG Shanelle ISI LAUNDROMAT WORKER- FPA, SACK SEWER MACHINE-BC Active Last Documented On 3 12:46PM ; [facility] Essential Hypertension Unknown YOUNG Timmons KUL P LAUNDROMAT WORKER-FPA, SACK SEWER MACHINE-BC Active Last Documented On 3 12:47PM ; [facility] Obesity Unknown YOUNG Timmons ISI LAUNDROMAT WORKER-FPA, SACK SEWER MACHINE-BC Active Last Documented On 4 11:21AM ; [facility] Nonorganic Sleep Apnea Obstructive Unknown Josef Timmons ISI LAUNDROMAT WORKER-FPA, SACK SEWER MACHINE-BC Active Last Documented On 4 11:21AM ; [facility] Osteoarthritis Unknown YOUNG Timmons ISI LAUNDROMAT WORKER-F PA, SACK SEWER MACHINE-BC Active Last Documented On 3 12:46PM ; [facility] Plan of Treatment No Plan [...] On 4 4:13PM By YOUNG MENDOZA ; [facility] Pregabalin 50 MG Oral Capsule 02/03/2024 Provider: REJI VILLATORO Diagnosis: Lesion of ulnar nerve, left upper limb 1 CAPSULE TWO TIMES A DAY Last Documented On 4 10:48AM By YOUNG MENDOZA ; [facility] Acetaminophen 500 MG Oral Tablet 02/03/2024 Provider : Diagnosis: Last Documented On 4 10:39AM By YOUNG MENDOZA ; [facility] tiZANidine HCl 2 MG Oral Tablet 02/03/2024 Provider: REJI BESS Diagnosis: Cervicalgia TAKE 1 TABLET BY MOUTH TWICE A DAY NEEDED FOR BACK OR NECK PAIN Last Documented On 4 10:48AM By YOUNG MENDOZA ; [facility] Baclofen 5 MG Oral Tablet 08/09/2023 Provider: Diagnosis: 1-2 tablets as needed. Last Documented On 3 12:52PM By YOUNG MENDOZA ; [facility] buPROPion HCl ER (XL) 300 MG Oral Tablet Extended Release 24 Hour 07/03/2023 Provider: Diagnosis: Last Documented On 3 12:52PM By YOUNG MENDOZA ; [facility] Trulicity 0.75 MG/0.5ML Subcutaneous Solution Pen-inje ctor 06/23/2023 Provider: Diagnosis: Last Documented On 3 12:52PM By YOUNG MENDOZA ; [facility] Lisinopril-hydroCHLOROthiazi de 10-12.5 MG Oral Tablet 06/13/2023 Provider: JENNIE YODER Diagnosis: Last Documented On 3 12:52PM By YOUNG SNOWDEN SACK SEWER MACHINEMARY ; [facility] metFORMIN HCl 500 MG Oral Tablet 05/30/2023 Provider : Diagnosis: Last Documented On 3 12:52PM By YOUNG SNOWDEN SACK SEWER MACHINEMARY ; [facility] Spiriva Respimat 1.25 MCG/ACT Inhalation Aerosol Solut ion 05/27/2023 Provider: Diagnosis: Last Documented On 3 12:52PM By YOUNG SNOWDEN SACK SEWER MACHINEMARY ; [facility] Medications Administered Includes: Administered Medications from this encounter No Administered Medications Recorded Results Includes: Results discussed during this encounter No Results Recorded For Specified Dates History of Present Illness Includes: History of Present Illness from this encounter No History of Present Illness Recorded Social History Description Last Updated Former smoker 08/09/2023 Last Documented On 4 10:23AM ; [facility] Difficulty walking 08/09/2023 Last Documented On 4 10:23AM ; [facility] No consumption of alcohol 08/09/2023 Last Documented On 4 10:23AM ; [facility] Not using drugs 08/09/2023 Last Documented On 4 10:23AM ; [facility] Smoking Status Unknown Procedures and Surgical History Surgical History Last Updated History of appendectomy 10/27/2023 Last Documented On 4 10:23AM ; [facility] History of cholecystectomy 10/27/2023 Last Documented On 4 10:23AM ; [facility] History of hysterectomy 10/27/2023 Last Documented On 4 10:23AM ; [facility] No Pacemaker 08/09/2023 Last Documented On 4 10:23AM ; [facility] Surgical / procedural histor y Alizeu-hemochromatosis 09/07- [facility]- [facility] -High blood pressure 08/09/2023 Last Documented On 4 10:23AM ; [facility] Medical History Includes: Medical History addressed during this encounter Description Last Updated Denies a fear of falling. 08/09/2023 Last Documented On 4 10:23AM ; [facility] Has had no fall in the last 12 months. 1 Last Documented On 4 10:23AM ; [facility] rn transitional care 08/09/2023 Last Documented On 4 10:23AM ; [facility] CT/MRI 06/10/2023 CT abdomen and pelvis - Emergency room visit back pain 08/09/2023 Last Documented On 4 10:23AM ; [facility] Deep muscle stimulation 08/09/2023 Last Documented On 4 10:23AM ; [facility] Injection/Nerve blocks 08/09/2023 Last Documented On 4 10:23AM ; [facility] Message/Acupressure 08/09/2023 Last Documented On 4 10:23AM ; [facility] No Pain Pump 08/09/2023 Last Documented On 4 10:23AM ; [facility] No Spinal cord stimulator 08/09/2023 Last Documented On 4 10:23AM ; [facility] Physical therapy 08/09/2023 Last Documented On 4 10:23AM ; [facility] Please list all illnesses/co nditions you have been diagnosed with: High blood pressure, diabetes, arthritis, ankylosis spondylitis, depression, hemochromatosis 08/09/2023 Last Documented On 4 10:23AM ; [facility] Please list all surgeries: R ight thumb trapezium arthroplasty and carple tunnel surgery 01/13/2023 08/09/2023 Last Documented On 4 10:23AM ; [facility] Treatment with TENS unit 08/09/2023 Last Documented On 4 10:23AM ; [facility] Ultrasound May [id number] lymph node 08/09/2023 Last Documented On 4 10:23AM ; [facility] Wearing contact lenses 08/09/2023 Last Documented On 4 10:23AM ; [facility] X-rays October 2022 -hand ri ght-surgery 01/13/23-Dr Delmi Garcia trapezium thumb joint removed and carpal 08/09/2023 Last Documented On 4 10:23AM ; [facility] Family History Includes: Family History addressed during this encounter Description Last Updated Family history of ischemic heart disease 08/09/2023 Last Documented On 4 10:23AM ; [facility] Fraternal history of Arthritis 3 Last Documented On 4 10:23AM ; [facility] Maternal history of reported family hist ory of seizures 08/09/2023 Last Documented On 4 10:23AM ; [facility] Paternal history of family history of is chemic heart disease 08/09/2023 Last Documented On 4 10:23AM ; [facility] Review of Systems Includes: Review of [...] Active Last Documented On 4 10:11AM ; [facility] Encounters Encounter Provider Location Date Check-In Time Check-Out Time Diagnosis * PHONE CALL YOUNG SNOWDEN APRN-FPA, SACK SEWER MACHINE-BC 12/16/2023 10:22AM 11:59PM Insurance Includes: Active Insurance Policies Plan Name Member ID Group # Subscriber Relationship Effect ruben Dates 1 - [facility] [id number] NELSON Cano f Clinical Notes Includes: Clinical Notes from this encounter * Progress note Date Encounter Last Documented by 12/16/2023 * PHONE CALL Last documented on 12/16/2023; 11:50 AM, YOUNG Timmons ISI LAUNDROMAT WORKER-FPA, SACK SEWER MACHINE-BC; [facility] Active Problems & Conditions - Asthma - Carotid Artery Stenosis - Depression - Diabetes Mellitus - Essential Hypertension - Generalized Anxiety Disorder - Hemochromatosis - Nonorganic Sleep Apnea Obstructive - Obesity - Osteoarthritis Chief Complaint Phone Call - Chief Concern: reason for call: Elaine with [facility] calling. States they need a PA in order to do the Genetic testing you ordered. Our referral department sent me the [employer] pt phone # for return call:[phone] date/initials: 12/16/2023 SAND TEMPERER. Current Medication - Acetaminophen 500 MG Oral Tablet As needed., 0 days, 0 refills - Baclofen 5 [...] History Reported: Injection/Nerve blocks, Deep muscle stimulation, rn transitional care, Treatment with TENS unit, Physical therapy, Message/Acupressure, Please list all illnesses/conditions you have been diagnosed with: High blood pressure, diabetes, arthritis, ankylosis spondylitis, depression, hemochromatosis, and Please list all surgeries: Right thumb trapezium arthroplasty and carple tunnel surgery 01/13/2023. Medical: Wearing contact lenses. No Spinal cord stimulator and no Pain Pump. Surgical / Procedural: Surgical / procedural history Sandu-hemochromatosis 09/07- [facility]- [facility] -High blood pressure. No Pacemaker. Tests: X-rays October 2022 -hand right-surgery 01/13/23-Dr Delmi Garcia trapezium thumb joint removed and carpal, CT/MRI 06/10/2023 CT abdomen and pelvis - Emergency room visit back pain, and Ultrasound May [id number] lymph node. Physical Trauma: Has had no [...] Reported family history of seizures Fraternal: Arthritis Plan StartCited - Other PHY ORDER/COMMENT I tried calling her the other day because I have a fax in my office about it. I have never done a PA for a lab test and have no idea how to do it. Typically we just use a different diagnosis code. Can she try another code? She could try M45.A6 EndCited Care Team - EVERTON LEMONS-C - Primary Care - ELBERT COX MD - Hematology & Oncology - DELMI ANDUJAR - Orthopaedic Surgery - PABLO PEARSON Health Reminders - Assess Tobacco Use satisfied 12/16/2023.
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
== END 2024-11-08 14:17 | disposition home or self-care (01) ==
LOC: CHSLAB 14:19
PROVIDERS: PCP Physician Assistant; Visit Provider Internal Medicine
DX: E83.110 Hereditary hemochromatosis (principal)
CPT/HCPCS: 36415; 82728; 83540; 83550; 85025

== ENCOUNTER 2025-04-10 09:27 | Outpatient (CLI) | payer OTHER, SELFPAY ==
--- NOTE | ~2025-04-10 | US_ITS ---
US retroperitoneal comp Ordering provider: Susan Segal, PLATE DEVELOPER History: . Other Proteinuria . Comparison: None. Technique: Ultrasound bilateral kidneys. Findings: RIGHT KIDNEY: Measures 10.1x 4.7x 4.7 cm in length which is normal in size. No renal cysts. No renal mass or visualized echogenic stones. Otherwise, normal echotexture and contour. No hydronephrosis. No rmal renal cortical thickness. LEFT KIDNEY: Measures 10.7x 5.1x 5.1 cm in length which is normal in size. No renal cysts. No renal m ass or visualized echogenic stones. Otherwise, normal echotexture and contour. No hydronephrosis. Nor mal renal cortical thickness. BLADDER: Normal. Ureteral jets were not seen bilaterally. IMPRESSION: No definite abnormality seen. Reviewed, dictated and finalized at location A.
--- NOTE | ~2025-04-10 | XR_ITS ---
XR ribs RT 2V Ordering provider: Susan Segal, INVOICE CODER History: . ANTERIOR LOWER RIGHT RIB PAIN/NO TRAUMA . Comparison: None. FINDINGS: BONES: No acute right rib fracture or fracture of the visualized osseous structures. LUNGS: No effusions or infiltrates. No pneumothorax. SOFT TISSUES: Normal. Degenerative changes of the spine. IMPRESSION: No right rib fracture (Note: subtle/nondisplaced rib fractures can be occult on plain films and if th ere is continued clinical suspicion for rib fracture, recommend follow up CT chest). Reviewed, dictated and finalized at location A. IMPRESSION: No right rib fracture (Note: subtle/nondisplaced rib fractures can be occult on plain films and if there is continued clinical suspicion for rib fracture, rec ommend follow up CT chest).
== END 2025-04-10 09:28 | disposition home or self-care (01) ==
PROVIDERS: PCP Nurse Practitioner Family; Visit Provider Nurse Practitioner Family
DX: R10.9 Unspecified abdominal pain (principal); R80.8 Other proteinuria
CPT/HCPCS: 71100; 76770

== ENCOUNTER 2025-05-08 13:13 | Outpatient (CLI) | payer MEDICARE, MEDICAID, SELFPAY ==
--- OUTSIDE RECORDS SUMMARY | 2025-05-08 13:22 | XMS_ITS | Clinical Summary ---
Author Organization [facility] Address [address] [address] Phone Care Team Providers Care A Operator Name Role Phone Leeann Soto APRN, PREVENTATIVE MAINTENANCE TECHNICIAN Primary Care Provider Yue Hewitt APRN, PREVENTATIVE MAINTENANCE TECHNICIAN Unavailable Marek Sweeney MD Unavailable [phone] Allergies Active Allergy Reactions Criticality Noted Date Comments Morphine Itching 07/19/2019 Nortriptyline Hallucinations 07/19/2019 Sulfa Antibiotics Rash Medium 03/15/2012 Sulfacetamide Unknown 09/07/2016 Thimerosal (Thiomersal) Other (see Comments) Low Medications metFORMIN (GLUCOPHAGE) 1000 MG Tablet 500 mg. 2 Active lisinopril-hydr oCHLOROthiazide (PRINZIDE, ZESTORETIC) 10-12.5 MG Tablet Take 1 Tablet by mouth daily. 2 Active Lancets (OneTouch Delica Plus [id number]) Misc USE TO TEST DAILY 2 Active OneTouch Ultra Strip USE TO TEST THREE TIMES DAILY 2 Active buPROPion (WELLBUTRIN) 300 MG TABLET SR 24 HR XL tablet Take 300 mg by mouth daily. 2 Active Blood Glucose Monitoring Suppl (ONE TOUCH ULTRA 2) w/Device Kit USE TO TEST DAILY 2 Active baclofen (LIORESAL) 10 MG Tablet Take 10 mg by mouth. Active Cyanocobalamin (VITAMIN B12 PO) Take by mouth. Activ e VITAMIN E PO Take by mouth. Ac tive Cholecalciferol 2000 UNIT Capsule Take 5,000 Units by mouth. 3 Active B Complex-C (SUPER B COMPLEX PO) Take by mouth daily. Active albuterol 108 (90 Base) MCG/ACT Aerosol Solution INHALE 2 PUFFS EVERY 4 TO 6 HOURS DAILY NEEDED 2 Active Trulicity 0.75 MG/0.5ML Solution Pen-injector ADMINISTER 0.75 MG UNDER THE SKIN EVERY WEEK 3 Active tiotropium (Spiriva Respimat) 1.25 MCG/ACT Aerosol Solution take 2 Puffs by inhalation. 3 Active pregabalin (LYRICA) 50 MG Capsule Take 50 mg by mouth 2 times daily. Active Active Problems Problem Noted Date Diagnosed Date Carrier of hemochromatosis HFE gene mutation Hypertension 10/13/2022 Type 2 diabetes mellitus 10/13/2022 Hyperlipidemia 10/13/2022 Hair loss 10/13/2022 Major depressive disorder 10/13/2022 Difficulty concentrating 10/13/2022 Chronic back pain 10/13/2022 Right arm pain 10/13/2022 Paresthesia of right upper extremity 10/13/2022 Chronic diarrhea 10/13/2022 Hereditary hemochromatosis 10/13/2022 Morbid obesity with BMI of 40.0-44.9, adult 01/2022 Polyp of colon 02/17/2022 Hepatic steatosis 02/17/2022 Lymphocytosis Immunizations Immunization Administration Dates Next Due TDAP Vaccine 11/10/2020 Family History Medical History Relation Name Comments Heart Attack Father Heart Disease Father Breast Cancer Maternal Grandmother Relation Name Status Comments Father Maternal Grandmother Mother Social History Tobacco Use Types Packs/Day Years Used Date Smoking Tobacco: Former Cigarettes Q uit: 08/20/2017 Smokeless Tobacco: Never Tobacco Cessation:Counseling Given: Not Answered Alcohol Use Standard Drinks/Week Comments Not Currently 0 (1 standard drink = 0.6 oz pur e alcohol) on occasion Sexually Active Control Partners Comments Not Currently Comments No Sex and Gender Information Value Date Recorded Sex Assigned at Not on file Legal Sex Female 8:44 AM CDT Gender Identity Not on file Sexual Orientation Not on file Last Filed Vital Signs Vital Sign Reading Time Taken Comments Blood Pressure 124/83 11/12/2024 3:55 PM RETAIL CLERK Pulse 73 11/12/2024 3:55 PM RETAIL CLERK Temperature 36.6 C (97.9 F) 11/12/2024 2:16 PM RETAIL CLERK Respiratory Rate 18 11/12/2024 2:16 PM RETAIL CLERK Oxygen Saturation 96% 11/12/2024 2:16 PM RETAIL CLERK Inhaled Oxygen Concentration - - Weight 121.2 kg (267 lb 1.6 oz) 11/12/2024 2:16 PM RETAIL CLERK Height 170.2 cm (5' 7) 11/12/2024 2:16 PM RETAIL CLERK Body Mass Index 41.83 11/12/2024 2:16 PM RETAIL CLERK Plan of Treatment Upcoming Encounters Date Type Department Care Team (Latest Contact Info) Description 05/13/2025 2:15 PM CDT [facility] [address] [place] [address] Jen Zavala, WAITSTAFF CAPTAIN, PREVENTATIVE MAINTENANCE TECHNICIAN [address] [place] [address] Discharge Disposition: Discharged to home or Selfcare 05/13/2025 3:00 PM CDT Clinical Support [facility] [address] [place] [address] Eva Sharma PAC [address] [place] [address] Discharge Disposition: Discharged to home or Selfcare Health Maintenance Due Date Last Done Comments Diabetes: Eye Exam 1960 Diabetes: Foot Exam 1960 Hepatitis C Virus (HCV) Screening 1960 Cologuard 2005 Immunochemical Fecal Occult Blood 2005 Respiratory Syncytial Virus (RSV) Immunization (Adult) (1 - Risk 60-74 years 1-dose series) 2020 Diabetes: Hemoglobin A1c 03/06/2023 09/06/2022 Diabetes: Nephropathy Screening 08/08/2024 08/08/2023, 10/13/2022, 09/06/2022 Influenza Immunization (#1) 2025 08/24/2024, 1 11/14/2021 Mammogram 07/02/2025 07/02/2024, 07/0 04/2023, 10/16/2019, Additional history exists Colonoscopy 07/27/2029 07/27/2019 Colorectal Cancer Screening 07/27/2029 Td Immunization Every 10 Years (Adults With 1 Tdap) 11/10/2030 11/10/2020 DTaP/Tdap/Td Immunization Discontinued 11/10/2020 SARS-COV-2 Immunization Completed 08/24/20 24, 10/30/2021, 01/16/2021, Additional history exists Pneumococcal Immunization (50+ years) Completed 10/29/2024 Pneumococcal Immunization Combined Discontinued 10/29/2024 Zoster Immunization Completed 12/04/2024, Hepatitis B Immunization Aged Out No longer eligible based on patient's age to complete this topic Human Papillomavirus (HPV) Immunization Aged Out No longer eligible based on patient's age to complete this topic Meningococcal Immunization (ACWY) Aged Out No longer eligible based on patient's age to complete this topic Rotavirus Immunization Aged Out No lo nger eligible based on patient's age to complete this topic Procedures Procedure Name Priority Date/Time Associated Diagnosis Comments CMP (COMPREHENSIVE METABOLIC PANEL) Routine 08/08/2023 2:23 PM CDT Chronic diarrhea MICHELLE SCREENING BILATERAL DIGITAL W CAD W JASPREET Routine 04/22/2023 3:29 PM CDT Encounter for screening mammogram for malignant neoplasm of breast HEMOGLOBIN, A1C 09/06/2022 12:00 AM RETAIL CLERK from Last 3 Months or Most Recently Relevant to Health Maintenance Results * (ABNORMAL) CMP (COMPREHENSIVE METABOLIC PANEL) (08/08/2023 2:23 PM CDT) SODIUM 138 136 - 145 mmol/L 08/08/2023 3:22 PM CDT [facility] POTASSIUM 4.0 3.5 - 5.1 mmol/L 08/08/2023 3:22 PM CDT [facility] CHLORIDE 105 98 - 107 mmol/L 08/08/2023 3:22 PM CDT [facility] CO2, VENOUS 22 22 - 30 mmol/L 08/08/2023 3:22 PM CDT [facility] ANION GAP 15.0 <18.0 mmol/L 08/08/2023 3:22 PM CDT [facility] GLUCOSE 92 70 - 99 mg/dL 08/08/2023 3:22 PM CDT [facility] BUN 17 10 - 20 mg/dL 08/08/2023 3:22 PM CDT [facility] CREATININE, BLOOD 1.05(H) 0.60 - 1.00 mg/dL 08/08/2023 3:22 PM CDT [facility] BUN/CREATININE RATIO 16 12 - 20 ratio 08/08/2023 3:22 PM CDT [facility] TOTAL PROTEIN 7.4 6.3 - 8.2 g/dL 08/08/2023 3:22 PM CDT [facility] ALBUMIN 4.0 3.5 - 5.0 g/dL 08/08/2023 3:22 PM CDT [facility] A/G RATIO 1.2 1.0 - 2.2 08/08/2023 3:22 PM CDT [facility] CALCIUM 9.0 8.7 - 10.5 mg/dL 08/08/2023 3:22 PM CDT [facility] T BILI 0.4 0.2 - 1.2 mg/dL 08/08/2023 3:22 PM CDT [facility] SGOT (AST) 29 5 - 34 U/L 08/08/2023 3:22 PM CDT [facility] SGPT (ALT) 35 0 - 55 U/L 08/08/2023 3:22 PM CDT [facility] ALKALINE PHOSPHATASE 66 40 - 150 U/L 08/08/2023 3:22 PM CDT [facility] IS THE PATIENT REQUIRED TO BE FASTING? No 08/08/2023 3:22 PM CDT [facility] GFR, ESTIMATED 60 >=60 08/08/2023 3:22 PM CDT [facility] Comment: Creatinine Clearance is the preferred criteria for selecting drug dose adjustments in renally impaired patients. The GFR is provided as additional pertinent clinical information. GFR is reported in mL/min/1.73 sq m. Calculation based on the Chronic Kidney Disease Epidemiology Collaboration (CKD- EPI) equation refit without adjustment for race. GFR, EST. >60 >=60 023 3:22 PM CDT [facility] GFR, EST. NONAFRICAN 53(L) >=60 08/08/2023 3:22 PM CDT [facility] Blood Venipuncture / Unknown 08/08/2023 2:23 PM CDT 08/08/2023 2:56 PM CDT Yue Hewitt WAITSTAFF CAPTAIN, PREVENTATIVE MAINTENANCE TECHNICIAN CHEMISTRY ORDERAB LES Final Result [facility] [address] [place] [address] * MICHELLE SCREENING BILATERAL DIGITAL W CAD W JASPREET (04/22/2023 3:29 PM CDT) Anatomical Region Laterality Modality breast Bilateral Mammography 04/22/2023 3:27 PM CDT Narrative 05/09/2023 4:06 PM CDT - MICHELLE SCREENING BILATERAL DIGITAL W CAD W JASPREET BILATERAL DIGITAL SCREENING MAMMOGRAM 3D/2D WITH CAD WITH MEDIOLATERAL OBLIQUE CRANIOCAUDAL: 04/22/2023 The study was acquired using digital technology and interpreted from soft copy. Current study was also evaluated with ICAD version 7.2. 2D digital mammographic views, as well as 3D digital tomosynthesis were performed in the CC and MLO projections. CLINICAL: Routine screening. Patient has no complaints. Patient has reduced range of motion. No personal history of cancer. Maternal grandmother had breast cancer. COMPARISONS: Additional films were requested but not obtained. Prior films are currently not available. BREAST TISSUE:There are scattered fibroglandular densities in both breasts. FINDINGS: No significant masses, calcifications, or other findings are seen in either breast. IMPRESSION: BI-RAD 1 NEGATIVE There is no mammographic evidence of malignancy. A 1 year screening mammogram is recommended. When the prior films are obtained, an addendum will be made. A letter will be sent to the patient with these results. The patient will be entered into a reminder system with a target due date of 1 year for her next screening exam. Electronically signed by: Eder saenz/penrad:05/09/2023 11:22:27 Prevention Specialist(s): RT Suzanne(R)(M), [facility] letter sent: Normal Exam Reading location: [facility] BI-RADS: 1 Negative Procedure Note Eder Lino MD - 05/09/2023 - MICHELLE SCREENING BILATERAL DIGITAL W CAD W JASPREET BILATERAL DIGITAL SCREENING MAMMOGRAM 3D/2D WITH CAD WITH MEDIOLATERAL OBLIQUE CRANIOCAUDAL: 04/22/2023 The study was acquired using digital technology and interpreted from soft copy. Current study was also evaluated with ICAD version 7.2. 2D digital mammographic views, as well as 3D digital tomosynthesis were performed in the CC and MLO projections. CLINICAL: Routine screening. Patient has no complaints. Patient has reduced range of motion. No personal history of cancer. Maternal grandmother had breast cancer. COMPARISONS: Additional films were requested but not obtained. Prior films are currently not available. BREAST TISSUE:There are scattered fibroglandular densities in both breasts. FINDINGS: No significant masses, calcifications, or other findings are seen in either breast. IMPRESSION: BI-RAD 1 NEGATIVE There is no mammographic evidence of malignancy. A 1 year screening mammogram is recommended. When the prior films are obtained, an addendum will be made. A letter will be sent to the patient with these results. The patient will be entered into a reminder system with a target due date of 1 year for her next screening exam. Electronically signed by: Eder saenz/penrad:05/09/2023 11:22:27 Prevention Specialist(s): RT Suzanne(R)(M), [facility] letter sent: Normal Exam Reading location: [place] BI-RADS: 1 Negative us Christian Pryor MD IMG MAMMO ORDERABLES Final Res ult * HEMOGLOBIN, A1C (09/06/2022 12:00 AM RETAIL CLERK) HGB-A1C 6.2 % SCAN 09/06/2022 us Provider Scan CHEMISTRY ORDERABLES Final Resul t SCAN from Last 3 Months or Most Recently Relevant to Health Maintenance Insurance MEDICAID [employer] MEDICAID [place] Care Teams A Operator Relationship Specialty Start Date End Date Leeann Soto, WAITSTAFF CAPTAIN, PREVENTATIVE MAINTENANCE TECHNICIAN [address] [address] PCP - General Advanced Practice Nurse 02/23/23 Yue Hewitt APRN, PREVENTATIVE MAINTENANCE TECHNICIAN [address] [place] [address] Nurse Practitioner Advanced Practice Nurse 08/08/23 Marek Sweeney MD [address] [place] [address] Consulting Physician Medical Oncology 07/21/23 Dr. Bonds at [facility] 10/14/22
--- OUTSIDE RECORDS SUMMARY | 2025-05-08 13:23 | XMS_ITS | Clinical Summary ---
Author Organization [facility] [address] Address [address] [place] [address] Phone Care Team Providers Care System Designer Name Role Phone Leeann Soto NP Primary Care Provider [phone] Allergies Active Allergy Reactions Criticality Noted Date Comments Morphine Itching Low 07/19/2019 Nortriptyline Hallucinations Medium 07/19/2019 Sulfa (Sulfonamide Antibiotics) Rash Medium 02/16 Thimerosal Eye irritation Low 08/16/2014 Medications blood-glucose meter kit 2 Active buPROPion XL (WELLBUTRIN XL) 300 mg 24 hr tablet Take 1 tablet (300 mg total) by mouth daily 2 Active lancets misc 2 Active lisinopril-hydr oCHLOROthiazide (ZESTORETIC) 10-12.5 mg per tablet Take 1 tablet by mouth daily 9 Active metFORMIN (GLUCOPHAGE) 500 mg tablet Take 1 tablet (500 mg total) by mouth daily with breakfast 2 Active calcium carbonate-vitam in D3 1,500 mg (600 mg elemental)-1,00 0 unit capsule Take 1 tablet by mouth daily Active vitamin E (AQUASOL E) 400 unit capsule Take 1 capsule (400 Units total) by mouth daily Active cholecalciferol (VITAMIN D-3) 2000 unit capsule Take 1 capsule (2,000 Units total) by mouth daily 30 capsule 3 Active albuterol HFA (PROVENTIL HFA,VENTOLIN HFA,PROAIR HFA) 90 mcg/actuation inhaler Inhale 2 puffs every 6 (six) hours as needed for wheezing 1 each 11 3 Active pregabalin (LYRICA) 50 mg capsule Take 1 capsule (50 mg total) by mouth 2 (two) times a day 4 Active cyanocobalamin (Vitamin B-12) 1,000 mcg tabletIndicatio ns:Prevention of Vitamin B12 Deficiency Take 1 tablet (1,000 mcg total) by mouth daily Active magnesium gluconate 200 mg tabletIndicatio ns:hypomagnesem ia Take 1 tablet (200 mg total) by mouth daily Active famotidine (PEPCID) 40 mg tabletIndicatio ns:Gastroesopha geal reflux disease, unspecified whether esophagitis present Take 1 tablet (40 mg total) by mouth daily 30 tablet 11 5 01/01/20 26 Active tiZANidine (ZANAFLEX) 2 mg tablet 1 tablet (2 mg total) 5 Active Rybelsus 3 mg tablet 1 tablet (3 mg total) [address] (CYMBALTA) 30 mg capsule 1 capsule (30 mg total) 5 Active OneTouch Verio test strips strip TEST SUGAR THREE TIMES DAILY 5 Active cholestyramine (QUESTRAN) 4 gram powder Take 1 packet (4 g total) by mouth 2 (two) times a day with meals Dissolve in 8 oz of liquid and drink before a meal 180 packet 1 5 Active baclofen (LIORESAL) 10 mg tablet Take 1 tablet (10 mg total) by mouth as needed 04/30/20 25 Discontinu ed(Alterna te therapy) ciprofloxacin (CIPRO) 500 mg tablet Take 1 tablet (500 mg total) by mouth every 12 (twelve) hours 5 04/30/20 25 Discontinu ed(Alterna te therapy) Active Problems Problem Noted Date Diagnosed Date Gastroesophageal reflux disease 12/31/2024 Assessment & Plan (12/31/2024 4:14 PM CDT): Start famotidine 40 mg daily Elevate head of bed while sleeping No eating 2-3 hours before bed Avoid tight clothing and trigger foods I have placed an order for GI evaluation today Centrilobular emphysema 12/31/2024 Assessment & Plan (12/31/2024 4:14 PM CDT): She should continue Albuterol as needed only, we have discussed indications for use We have discussed maintenance inhaled therapy Avoid triggers We have discussed signs and symptoms that would require earlier evaluation or change to her plan of care Pulmonary nodules 07/02/2024 Assessment & Plan (07/02/2024 1:53 PM CDT): These are new on her recent imaging however she began experiencing sick symptoms within 1-2 days of completing her CT chest. We will follow closely with a repeat CT in 6 months. Acute upper respiratory infection 07/02/2024 Assessment & Plan (07/02/2024 1:56 PM CDT): Radiographically she has some mild underlying emphysema Symptoms have been present almost a week She is reluctant to take steroids, I will send an order for azithromycin today Continue albuterol as needed only, we have discussed indications for use Complete tear of left rotator cuff 06/28/2024 Arthritis of left acromioclavicular joint 2023 Biceps tendonitis, left 06/28/2024 Impingement syndrome of left shoulder 06/28/2024 Cubital tunnel syndrome on left 02/13/2024 Carpal tunnel syndrome on left 02/13/2024 Numbness and tingling of left hand 01/15/2024 Carrier of hemochromatosis HFE gene mutation 03/01/2023 Carpal tunnel syndrome on right 12/02/2022 Overview (12/02/2022): Added automatically from request for surgery [id number] Primary osteoarthritis of fi rst carpometacarpal joint of right hand 12/02/2022 Overview (12/02/2022): Added automatically from request for surgery [id number] De Quervain's tenosynovitis 12/02/2022 Overview (12/02/2022): Added automatically from request for surgery [id number] Memory loss 11/17/2022 Morbid (severe) obesity due to excess calories 0 11/17/2022 Body mass index 40.0-44.9, adult ([facility]) 11/17 CARISSA (obstructive sleep apnea) 11/17/2022 Assessment & Plan (12/31/2024 4:07 PM CDT): She should continue BiPAP use with all sleep including naps Keep appointments with sleep medicine Ensure that supplies are cleaned correctly She was aware of the risk of uncorrected sleep apnea Assessment & Plan (07/02/2024 1:54 PM CDT): She should continue BiPAP use with all sleep Keep appointments with sleep medicine She was aware of the risk of uncorrected sleep apnea Alveolitis of jaw 10/21/2022 Black hairy tongue 10/21/2022 Active dental caries 10/21/2022 History of tooth extraction 10/21/2022 Loss of teeth due to extraction 10/21/2022 Chronic back pain 10/13/2022 Assessment & Plan (04/20/2025 7:48 AM CDT): Orders: XR Spine Lumbar Complete 4 View Chronic diarrhea 10/13/2022 Difficulty concentrating 10/13/2022 Hair loss 10/13/2022 Hereditary hemochromatosis 10/13/2022 Hyperlipidemia 10/13/2022 Paresthesia of right upper extremity 10/13/2022 Right arm pain 10/13/2022 Type 2 diabetes mellitus 10/13/2022 Hepatic steatosis 02/17/2022 Polyp of colon 02/17/2022 Hoarse 08/07/2015 Simple chronic bronchitis 05/28/2015 Contact dermatitis due to poison prakash 03/04/2015 Acute sinusitis 05/29/2014 Excessive sweating 05/29/2014 Muscle cramps 05/29/2014 Otitis media 05/29/2014 Carotid artery stenosis 04/18/2014 Anxiety 04/11/2014 Ankle edema 02/20/2014 Major depressive disorder 02/20/2014 Hypertension 08/21/2013 Rash 08/21/2013 Tobacco dependence syndrome 08/21/2013 Moderate persistent asthma 05/31/2013 Asthenia 07/15/2011 Encounters Date Type Department Care Team Description 04/30/2025 1:15 PM CDT Office Visit [facility] Gastroenterology at [address] [place] [phone] Brea Thompson MD RUQ pain (Primary Dx); Gastroesophageal reflux disease, unspecified whether esophagitis present; Chronic diarrhea 04/30/2025 Orders Only [facility] Nephrology at [address] [place] [phone] ProviderRamón MD 04/09/2025 4:30 PM CDT Ancillary Procedure [facility] Imaging at [address] [phone] 04/09/2025 3:30 PM CDT Office Visit [facility] Orthopedic [facility] Sports Medicine [address] [place] [phone] Shyann Aguilar PA Bilateral hip pain (Primary Dx); Chronic midline low back pain with bilateral sciatica 04/09/2025 3:25 PM CDT Ancillary Procedure [facility] Imaging at [address] [phone] 03/07/2025 3:28 PM CDT - 03/07/2025 11:59 PM CDT Hospital Encounter [facility] [address] [place] [address] Hematuria, unspecified type Discharge Disposition: Discharge to home or self care 02/26/2025 1:00 PM CDT Ancillary Procedure [facility] Medical [facility] Imaging at [address] [phone] 02/26/2025 1:00 PM CDT Office Visit [facility] Orthopedic and Sports Medicine [address] [place] [phone] Shyann Aguilar PA Trigger middle finger of right hand (Primary Dx) 02/11/2025 2:15 PM CDT Office Visit [facility] [address] [place] [address] [address] [place] [phone] Michael Mcclure MD CARISSA (obstructive sleep apnea) (Primary Dx); Periodic limb movement disorder; Hypersomnia with sleep apnea; Morbid obesity with BMI of 40.0-44.9, adult (HCC) from Last 3 Months Surgical History Surgery Date Site/Laterality Comments PARTIAL HYSTERECTOMY 10/17/2005 - 10/16/2006 GALLBLADDER SURGERY 10/17/2015 - 10/16/2016 APPENDECTOMY 10/17/1982 - 10/16/1983 HYSTERECTOMY CARPAL TUNNEL RELEASE 02/23/2024 Left CARPAL TUNNEL RELEASE 01/13/2023 Right BREAST BIOPSY 10/17/1984 - 10/16/1985 Left clogged milk duct Medical History Medical History Date Comments Neuropathy Asthma Diabetes (HCC) Cirrhosis (HCC) F-1 Depression Awareness under anesthesia Hypertension Lung disease Type 2 diabetes mellitus (HCC) Hemochromatosis DJD (degenerative joint disease) of cervical spi ne Sleep apnea Anxiety Acute upper respiratory infection 07/02/2024 Family History Medical History Relation Name Comments Heart attack Father Heart disease Father Breast cancer Maternal Grandmother Cancer Mother Suicide Completion Mother Arthritis Other Diabetes Other Hemochromatosis Other Relation Name Status Comments Father Maternal Grandmother Mother Other Social History Tobacco Use Types Packs/Day Years Used Date Smoking Tobacco: Former Cigarettes 1.5 50 1 966 - 2015 Smokeless Tobacco: Never Tobacco Cessation:Counseling Given: Not Answered AUDIT-C Answer Date Recorded Q1: How often do you have a drink containing alc ohol? Never 04/09/2025 Average Number of Drinks Not on file 025 Frequency of Binge Drinking Not on file 03/18 Personal Safety Answer Date Recorded Have you ever been in or are you currently in a harmful physical or emotional relationship or is someone making you feel afraid or unsafe? Denies 02/23/2024 Comments No Sex and Gender Information Value Date Recorded Sex Assigned at Not on file Legal Sex Female 11:37 PM [employer] Gender Identity Not on file Sexual Orientation Not on file Obstetrics History Para Term AB IAB SAB Ectopic Multiple Livin g Live Births 3 2 2 Date Outcome GA Total Labor Labor/2nd/3rd Weight Sex Type Anes PTL Nicky A1 A5 Name Clin Term Term Last Filed Vital Signs Vital Sign Reading Time Taken Comments Blood Pressure 145/83 04/30/2025 1:19 PM CDT Pulse 75 04/30/2025 1:19 PM CDT Temperature 35.9 C (96.6 F) 12/31/2024 11:38 AM CDT Respiratory Rate 18 12/31/2024 11:3 8 AM CDT Oxygen Saturation 96% 04/30/2025 1:19 PM CDT Inhaled Oxygen Concentration - - Weight 120.3 kg (265 lb 3.2 oz) 04/30/2025 1:19 PM CDT Height 170.2 cm (5' 7) 04/30/2025 1:19 PM CDT Body Mass Index 41.54 04/30/2025 1:19 PM CDT Plan of Treatment Health Maintenance Due Date Last Done Comments Albumin Creatinine Ratio, Urine 1960 Colon Cancer Screening-Colonoscopy 1960 Depression Screening 1960 Hemoglobin A1C 1960 Hepatitis C Screening 1960 eGFR 1960 Dilated Eye Exam 1960 Foot Exam 1960 Lipid Panel 1960 Hepatitis B Screening 1978 Regular Well Visit/Exam 18-64 1978 Pneumococcal vaccine <65 (1 of 2 - PCV) 1979 Zoster Vaccine (1 of 2) 2010 Covid-19 Vaccine (4 - 2023-2 5 season) 2024 10/30/2021, 01/16/2021, 12/19/2020 Influenza Vaccine (#1) 2025 09/14/2022, 2013 Lung Cancer Screening 06/27/2025 06/26/2024, 023 Breast Cancer Screening-Mammogram 07/02/2025 07/02/2024, 04/22/2023, 04/22/2023, Additional history exists DTaP/Tdap/Td Vaccine (2 - Td or Tdap) 11/10/2030 11/10/2020 Medical Devices Implanted Type Area Team Assembler Device Identifier Shelf Expiration Date Model / Serial / Lot [employer] Dx Swivelock Sl 3.5mm 8.5mm Fork Eyelet Austin Suture Sterile Ar-[id number] - [id number] Implanted:Qty: 1 on 01/13/2023 by Lopez Gonzales MD at [facility] Right: Wrist [employer] 09/15/2027 AR-[id number] / / [id number] [employer] Arthrex Dx Fibertak Needle Austin Suture Sterile Latex Free Ar-[id number] - [id number] Implanted:Qty: 1 on 01/13/2023 by Lopez Gonzales MD at [facility] Right: Wrist [employer] 08/16/2027 AR-[id number] / / [id number] Procedures Procedure Name Priority Date/Time Associated Diagnosis Comments US RETROPERITONEAL COMPLETE Schedule Routine, Read Routine (OP Routine) 04/10/2025 1:30 PM CDT XR SPINE LUMBAR COMPLETE 4 OR MORE VIEWS Schedule Routine, Read Routine (OP Routine) 04/09/2025 4:36 PM CDT Chronic midline low back pain with bilateral sciatica XR HIPS BILATERAL 3 OR 4 VW Schedule Routine, Read Routine (OP Routine) 04/09/2025 3:42 PM CDT Bilateral hip pain XR KUB Schedule Routine, Read Routine (OP Routine) 03/07/2025 3:43 PM CDT Hematuria, unspecified type XR KUB Schedule Routine, Read Routine (OP Routine) 03/07/2025 1:32 PM CDT XR HAND RIGHT 3 OR MORE VIEWS Schedule Routine, Read Routine (OP Routine) 02/26/2025 1:31 PM CDT Trigger middle finger of right hand CA INJECTION 1 TENDON SHEATH/LIGAMENT APONEUROSIS Routine 02/26/2025 1:00 PM CDT Trigger middle finger of right hand SCREENING MAMMOGRAM BILATERAL W THOMAS Schedule Routine, Read Routine (OP Routine) 07/02/2024 3:13 PM CDT Screening mammogram, encounter for CT LUNG CANCER SCREENING Schedule Routine, Read Routine (OP Routine) 06/26/2024 9:41 AM CDT Nicotine dependence, cigarettes, in remission from Last 3 Months or Most Recently Relevant to Health Maintenance Results * US Retroperitoneal Complete (04/10/2025 1:30 PM CDT) Anatomical Region Laterality Modality Abdomen N/A Ultrasound us Historical Provider MD IMG US PROCEDURES Final R esult * XR Spine Lumbar Complete 4 View (04/09/2025 4:36 PM CDT) Anatomical Region Laterality Modality Spine N/A Digital Radiogra phy 04/15/2025 8:22 AM CDT Narrative 04/15/2025 8:24 AM CDT EXAM DESCRIPTION: XR SPINE LUMBAR 4 OR MORE VIEWS REASON FOR STUDY: pain Pt complains of lbp for many years worsening recently. No known injury or prior surgery. TECHNIQUE: 4 radiographic view(s) of the lumbar spine. COMPARISON: None FINDINGS: ALIGNMENT: Anatomic. VERTEBRAE: Vertebral bodies of normal height. Facet arthrosis of the lower lumbar spine. Small anterior vertebral body marginal osteophytes. DISCS: Mild multilevel disc height loss. SOFT TISSUES: Atherosclerotic calcifications of the abdominal aorta are noted. Cholecystectomy clips are noted. IMPRESSION: No acute findings of the lumbar spine. Mild multilevel degenerative disc disease. THIS IS AN ELECTRONICALLY VERIFIED FINAL REPORT 04/15/2025 8:24 AM - Electronically signed by Tomas ASH T: Report ID: [id number] Reading Location: [id number] Procedure Note Tomas Campa MD - 04/15/2025 EXAM DESCRIPTION: XR SPINE LUMBAR 4 OR MORE VIEWS REASON FOR STUDY: pain Pt complains of lbp for many years worsening recently. No known injury or prior surgery. TECHNIQUE: 4 radiographic view(s) of the lumbar spine. COMPARISON: None FINDINGS: ALIGNMENT: Anatomic. VERTEBRAE: Vertebral bodies of normal height. Facet arthrosis of the lower lumbar spine. Small anterior vertebral body marginal osteophytes. DISCS: Mild multilevel disc height loss. SOFT TISSUES: Atherosclerotic calcifications of the abdominal aorta arenoted. Cholecystectomy clips are noted. IMPRESSION: No acute findings of the lumbar spine. Mild multilevel degenerative disc disease. THIS IS AN ELECTRONICALLY VERIFIED FINAL REPORT 04/15/2025 8:24 AM - Electronically signed by Tomas Campa M.D. KR T: Report ID: [id number] Reading Location: [id number] Shyann Aguilar PABLO IMG XR PROCEDURES Final Result * XR Hips Bilateral 3 or 4 Views (04/09/2025 3:42 PM CDT) Anatomical Region Laterality Modality Lower Extremities, Hip, Pelvis Bilateral D igital Radiography Narrative 04/20/2025 7:43 AM CDT X-ray of the pelvis viewed and interpreted. There is no evidence of fracture, subluxation, or bony abnormality. Moderate DJD is present of bilateral hips including joint space narrowing, subchondral sclerosis, and osteophyte formation. Shyann Aguilar AL IMG XR PROCEDURES Final Result * XR Kub (03/07/2025 3:43 PM CDT) Anatomical Region Laterality Modality Body, Abdomen N/A Computed Radiogr aphy 03/17/2025 9:53 PM CDT Narrative 03/17/2025 9:59 PM CDT EXAM DESCRIPTION: XR KUB REASON FOR STUDY: R31.9 Pt states she has had right back/flank pain since 2017 H/o partial hysterectomy, appendectomy, cholecystectomy, bladder tie TECHNIQUE: KUB radiographic view of the abdomen. COMPARISON: No comparison. FINDINGS: BOWEL: Average amount of stool throughout the colon. Overall nonspecific bowel gas pattern. There is a small amount of small bowel gas in the right abdomen. No dilated bowel. SOFT TISSUES: Cholecystectomy. LINES/TUBES: None. BONES: No acute osseous abnormality. Included lung bases are grossly clear. IMPRESSION: Nonspecific bowel gas pattern with an average amount of stool throughout the colon mild gas within small bowel loops in the right abdomen. THIS IS AN ELECTRONICALLY VERIFIED FINAL REPORT 03/17/2025 9:59 PM - Electronically signed by Raymundo Olivo M.D. LC: KUMAR Report ID: [id number] Reading Location: [id number] Procedure Note Ana Olivo MD - 03/17/2025 EXAM DESCRIPTION: XR KUB REASON FOR STUDY: R31.9 Pt states she has had right back/flank pain since 2017 H/o partial hysterectomy, appendectomy, cholecystectomy, bladder tie TECHNIQUE: KUB radiographic view of the abdomen. COMPARISON: No comparison. FINDINGS: BOWEL: Average amount of stool throughout the colon. Overallnonspecific bowel gas pattern. There is a small amount of small bowel gas in theright abdomen. No dilated bowel. SOFT TISSUES: Cholecystectomy. LINES/TUBES: None. BONES: No acute osseous abnormality. Included lung bases are grossly clear. IMPRESSION: Nonspecific bowel gas pattern with an average amount of stool throughoutthe colon mild gas within small bowel loops in the right abdomen. THIS IS AN ELECTRONICALLY VERIFIED FINAL REPORT 03/17/2025 9:59 PM - Electronically signed by Raymundo Olivo M.D. LC: KUMAR Report ID: [id number] Reading Location: [id number] Not In File Miscellaneous IMG XR PROCEDURES Marcela l Result * XR Kub (03/07/2025 1:32 PM CDT) Anatomical Region Laterality Modality Body, Abdomen N/A Radiographic Tess ging Historical Provider IMG XR PROCEDURES Final R esult * XR Hand Right 3 or More Views (02/26/2025 1:31 PM CDT) Anatomical Region Laterality Modality Upper Extremities, Hand Right Digital Radiography Narrative 02/26/2025 1:38 PM CDT Radiographs of the right hand are reviewed interpreted. No acute fractures or destructive osseous lesions. Status post carpometacarpal arthroplasty changes are noted with the absence of the trapezium. Degenerative changes are appreciated within the interphalangeal joints Shyann SHAH IMG XR PROCEDURES Final Result * CA INJECTION 1 TENDON SHEATH/LIGAMENT APONEUROSIS (02/26/2025 1:00 PM CDT) Narrative Lopez Gonzales MD - 02/26/2025 1:00 PM CDT Lopez Gonzales MD 03/06/2025 10:55 AM Hand / Upper Extremity Arthrocentesis: R long A1 Performed by: Shyann Aguilar PA Authorized by: Shyann Aguilar PA Consent Given by: Patient Site marked: the procedure site was marked Verbal consent obtained?: Yes Indications: Tendon swelling, therapeutic and pain Condition: trigger finger Location: Long finger Site: R long A1 Prep: patient was prepped and draped in usual sterile fashion Needle Size: 25 G Approach: Volar Ultrasound guidance: No Medications Right Long Injection: 1 mL lidocaine 20 mg/mL (2 %); 20 mg methylPREDNISolone acetate 80 mg/mL Patient tolerance: Patient tolerated the procedure well with no immediate complications Shyann SHAH IN CLINIC/BEDSIDE ORDER LEONILA Final Result * Screening Mammogram Bilateral W Thomas (07/02/2024 3:13 PM CDT) Anatomical Region Laterality Modality Breast Bilateral Mammography 07/03/2024 3:48 PM CDT Impressions 07/03/2024 3:48 PM CDT There is no mammographic evidence of malignancy. A 1 year screening mammogram is recommended. BI-RADS: 1 - Negative. The patient has been or will be contacted. The patient will be entered into a reminder system with a target due date of 1 year for her next mammogram. Electronically signed by: Darinel Smith M.D. Narrative 07/03/2024 3:48 PM CDT EXAMINATION: SCREENING MAMMOGRAM BILATERAL W THOMAS ORDERING HEALTHCARE PROVIDER: CHRISTIAN PRYOR HISTORY: Routine screening mammography. COMPARISON: Outside mammograms dated [facility]2023 [facility] and 08/15/2007 ([facility]) TECHNIQUE: CC and MLO views of the bilateral breasts were obtained with digital technique using breast tomosynthesis with C view. Computer aided detection was utilized. FINDINGS: DENSITY: There are scattered fibroglandular elements in the bilateral breasts. BREASTS: There is no new suspicious finding in either breast on mammogram. us Christian Pryor MD IMG MAMMO PROCEDURES Final Result * CT Lung Cancer Screening (06/26/2024 9:41 AM CDT) Anatomical Region Laterality Modality Chest N/A Computed Tomogra phy 06/26/2024 1:01 PM CDT Narrative 06/26/2024 1:08 PM CDT EXAM DESCRIPTION: CT LUNG CANCER SCREENING REASON FOR STUDY: Screening CT of the chest in a former smoker with a 75 pack year smoking history. Additional history: Quit smoking 9 years ago. TECHNIQUE: Low dose CT scan of the chest was performed without intravenous contrast using helical scanning technique. The exam extends from the lung apices through the lung bases. Automatic exposure control was used as a dose optimization technique. NOTE: This study was performed for the specific purposes of lung cancer screening and is not an alternative to diagnostic chest CT. RADIATION DOSE: CT dose index volume (CTDIvol) = 3.7 mGy COMPARISON: 06/24/2023. FINDINGS: SMOKING RELATED LUNG DISEASE: Mild emphysema. LUNG NODULES: There are 2 new solid pulmonary nodules in the right upper lobe adjacent to each other on image 117 series 2. 1 measures 5 mm the other 4 mm. Unchanged 3 mm nodule right middle lobe image 181. 3 mm nodule left upper lobe image 87 series 2, unchanged. New 3 mm nodule left upper lobe image 107 series 2. CORONARY ARTERY CALCIFICATION: Moderate OTHER: Normal heart size. No pericardial effusion. Mild hepatic steatosis. No lymphadenopathy. [id number]-[id number] degenerative changes of the spine. Low-dose technique limits evaluation and characterization. IMPRESSION: 1. New 5 mm nodule and 4 mm nodule in the right upper lobe, image 117 series 2. Lung-RADS category 3: Probably benign. Recommendation: Low dose Screening CT of chest in 12 months. THIS IS AN ELECTRONICALLY VERIFIED FINAL REPORT 06/26/2024 1:08 PM - Electronically signed by Tomas Fulton M.D. KN: MAIRNO Report ID: [id number] Reading Location: [id number] Procedure Note Tomas Fulton MD - 06/26/2024 EXAM DESCRIPTION: CT LUNG CANCER SCREENING REASON FOR STUDY: Screening CT of the chest in a former smoker with a75 pack year smoking history. Additional history: Quit smoking 9 years ago. TECHNIQUE: Low dose CT scan of the chest was performed without intravenous contrast using helical scanning technique. The exam extends from the lung apices through the lung bases. Automatic exposure control was used as adose optimization technique. NOTE: This study was performed for the specific purposes of lung cancer screening and is not an alternative to diagnostic chest CT. RADIATION DOSE: CT dose index volume (CTDIvol) = 3.7 mGy COMPARISON: 06/24/2023. FINDINGS: SMOKING RELATED LUNG DISEASE: Mild emphysema. LUNG NODULES: There are 2 new solid pulmonary nodules in the right upper lobe adjacent to each other on image 117 series 2. 1 measures 5 mm theother 4 mm. Unchanged 3 mm nodule right middle lobe image 181. 3 mm nodule left upper lobe image 87 series 2, unchanged. New 3 mm nodule left upper lobe image 107 series 2. CORONARY ARTERY CALCIFICATION: Moderate OTHER: Normal heart size. No pericardial effusion. Mild hepaticsteatosis. No lymphadenopathy. Ogoo-iy-krzfakts degenerative changes of the spine. Low-dose technique limits evaluation and characterization. IMPRESSION: 1. New 5 mm nodule and 4 mm nodule in the right upper lobe, image 117series 2. Lung-RADS category 3: Probably benign. Recommendation: Low dose Screening CT of chest in 12 months. THIS IS AN ELECTRONICALLY VERIFIED FINAL REPORT 06/26/2024 1:08 PM - Electronically signed by Tomas Fulton M.D. KN: MARINO Report ID: [id number] Reading Location: [place] [address] Georgi Palmer MD [facility] CT PROCEDURES Final Result from Last 3 Months or Most Recently Relevant to Health Maintenance Insurance [facility] IDPA Care Teams System Designer Relationship Specialty Start Date End Date Leeann Soto NP [address] [facility] [address] [place] [address] PCP - General Family Medicine 01/13/23
--- OUTSIDE RECORDS SUMMARY | 2025-05-08 13:23 | XMS_ITS | Referral Summary ---
Author Organization [facility] [address] [place] [address] Phone Care Team Providers Care Salon Manager Name Role Phone Charles Leeann Wheat MAIKEL Primary Care Provider [phone] Encounters Date Type Department Care Team Description 04/30/2025 Orders Only [facility] Nephrology at [address] [place] [phone] ProviderRamón MD 04/30/2025 1:15 PM CDT Office Visit [facility] Gastroenterology at [address] [place] [phone] Brea Thompson MD RUQ pain (Primary Dx); Gastroesophageal reflux disease, unspecified whether esophagitis present; Chronic diarrhea 04/09/2025 4:30 PM CDT Ancillary Procedure [facility] Imaging at [address] [phone] 04/09/2025 3:25 PM CDT Ancillary Procedure [facility] Imaging at [address] [phone] 04/09/2025 3:30 PM CDT Office Visit [facility] Orthopedic and Sports Medicine [address] [place] [phone] Shyann Aguilar PA Bilateral hip pain (Primary Dx); Chronic midline low back pain with bilateral sciatica 03/07/2025 3:28 PM CDT - 03/07/2025 11:59 PM CDT Hospital Encounter [facility] [address] [place] [address] Hematuria, unspecified type Discharge Disposition: Discharge to home or self care 02/26/2025 1:00 PM CDT Ancillary Procedure [facility] Imaging at [address] [phone] 02/26/2025 1:00 PM CDT Office Visit [facility] Orthopedic [facility] Sports Medicine [address] [place] [phone] Shyann Aguilar PA Trigger middle finger of right hand (Primary Dx) 02/11/2025 2:15 PM CDT Office Visit [facility] [address] [facility] [address] [place] [phone] Michael Mcclure MD CARISSA (obstructive sleep apnea) (Primary Dx); Periodic limb movement disorder; Hypersomnia with sleep apnea; Morbid obesity with BMI of 40.0-44.9, adult ([facility]) from Last 3 Months Allergies Active Allergy Reactions Criticality Noted Date [...] (12/02/2022): Added automatically from request for surgery [id number] Primary osteoarthritis of fi rst carpometacarpal joint of right hand 12/02/2022 Overview (12/02/2022): Added automatically from request for surgery [id number] De Quervain's tenosynovitis 12/02/2022 Overview (12/02/2022): Added automatically from request for surgery [id number] Memory loss 11/17/2022 Morbid (severe) obesity due to excess calories 0 11/17/2022 Body mass index 40.0-44.9, adult ([facility]) 11/17 CARISSA (obstructive sleep apnea) 11/17/2022 Assessment [...] 08/21/2013 Moderate persistent asthma 05/31/2013 Asthenia 07/15/2011 Social History Tobacco Use Types Packs/Day Years Used Date Smoking Tobacco: Former Cigarettes 1.5 50 1 966 - 2016 Smokeless Tobacco: Never Tobacco Cessation:Counseling Given: Not [...] on file Legal Sex Female 11:37 PM SYSTEMS COORDINATOR Gender Identity Not on file Sexual Orientation [...] 04/30/2025 1:19 PM CDT Plan of Treatment Not on file Medical Devices Implanted Type Area Human Resources Manager Manufacturing Device Identifier Shelf Expiration Date Model / Serial / Lot [employer] Dx Swivelock Sl 3.5mm 8.5mm Fork Eyelet [place] Suture Sterile Ar-[id number] - [id number] Implanted:Qty: 1 on 01/13/2023 by Lopez Gonzales MD at [facility] Right: Wrist [employer] 09/15/2027 AR-[id number] / / [id number] [employer] Arthrex Dx Fibertak Needle [place] Suture Sterile Latex Free Ar-[id number] - [id number] Implanted:Qty: 1 on 01/13/2023 by Lopez Gonzales MD at [facility] Right: Wrist [employer] 08/16/2027 [id number] / / [id number] Procedures Procedure Name Priority Date/Time Associated Diagnosis [...] CDT Trigger middle finger of right hand TX INJECTION 1 TENDON SHEATH/LIGAMENT APONEUROSIS Routine 02/26/2025 [...] Abdomen N/A Ultrasound us Historical Provider MD BALL US PROCEDURES Final R esult * XR [...] signed by Tomas ASH T: Report ID: [id number] Reading Location: [id number] Procedure Note Tomas Campa MD - 04/15/2025 [...] signed by Tomas ASH T: Report ID: [id number] Reading Location: [id number] Shyann [facility] IMG XR PROCEDURES Final Result * XR [...] subchondral sclerosis, and osteophyte formation. Shyann Aguilar [place] IMG XR PROCEDURES Final Result * XR [...] Raymundo Olivo M.D. LC: KUMAR Report ID: [id number] Reading Location: [id number] Procedure Note Ana Olivo MD - 03/17/2025 [...] Raymundo Olivo M.D. LC: KUMAR Report ID: [id number] Reading Location: [place] [address] Not In File Miscellaneous IMG XR PROCEDURES [...] [facility] IMG XR PROCEDURES Final Result * TX INJECTION 1 TENDON SHEATH/LIGAMENT APONEUROSIS (02/26/2025 1:00 [...] Final Result * Screening Mammogram Bilateral W Thomsa (07/02/2024 3:13 PM CDT) Anatomical Region Laterality [...] BILATERAL W THOMAS ORDERING HEALTHCARE PROVIDER: CHRISTIAN AMADO HISTORY: Routine screening mammography. COMPARISON: Outside mammograms dated 04/22/2023 ([facility]) and 08/15/2007 ([facility]) TECHNIQUE: CC and MLO views of the bilateral breasts were obtained with digital technique using breast tomosynthesis with C view. Computer aided detection was utilized. FINDINGS: DENSITY: There are scattered fibroglandular elements in the bilateral breasts. BREASTS: There is no new suspicious finding in either breast on mammogram. us Christian Amado MD IMG MAMMO PROCEDURES Final Result * [...] pericardial effusion. Mild hepatic steatosis. No lymphadenopathy. Hxcr-wp-hggkobjr degenerative changes of the spine. Low-dose technique [...] Tomas Fulton M.D. KN: MARINO Report ID: [id number] Reading Location: [place] [address] Procedure Note Tomas Fulton MD - 06/26/2024 [...] No pericardial effusion. Mild hepaticsteatosis. No lymphadenopathy. Jzou-oo-frvbomuh degenerative changes of the spine. Low-dose technique [...] Tomas Fulton M.D. KN: MARINO Report ID: [id number] Reading Location: [id number] Georgi Palmer MD IM CT PROCEDURES Final Result from Last 3 Months or Most Recently Relevant to Health Maintenance Insurance [facility] IDPA Care Teams Salon Manager Relationship Specialty Start Date End Date Leeann Soto NP [address] [address] PCP - General Family Medicine 01/13/23
--- OUTSIDE RECORDS SUMMARY | 2025-05-08 13:23 | XMS_ITS | Patient Health Record ---
Author Organization [facility] Address [address] [place] [address] Care Team Providers Care Transition Coach Name Role Phone HOLLI GREENBERG Unavailable [phone] Reason For Referral No Information Medications Medication SIG (Take, Route, Frequency, Duration) Notes Start Date End Date Status buPROPion HCl 300 for -2 *Pick strength -form from [employer] for eRX* 05/17/2022 Active ONETOUCH ULTRA TEST STRIPS for -2 *Reorder from [employer] for eRx and Interaction Alerts* 06/18/2022 Active Metformin 1,000 for -2 *Reorder from [employer] for eRx and Interaction Alerts* 05/31/2022 Active Lisinopril-hydroCHL OROthiazide 10-12.5 MG Oral for -2 04/25/2022 Active Gabapentin 100 for -2 *Pick strength-f orm from [employer] for eRX* 07/01/2022 Active Diclofenac Sodium 75 MG Oral for -2 04/23/2022 Active Problems Problem Type SNOMED Code ICD Code Onset Dates Problem Status W/U Status Risk Notes Problem Polyneuropathy due to type 2 diabetes mellitus (105786344) Type 2 diabetes mellitus with diabetic polyneuropathy (E11.42) 07/01/20 Active confirmed Problem Anxiety disorder (793298226) Anxiety disorder, unspecified (F41.9) 07/01/20 Active confirmed Problem Disorder of the peripheral nervous system (37462138) Other disorders of peripheral nervous system (G64) 07/01/20 Active confirmed Problem Peroneal tendinitis (60502505) Peroneal tendinitis, right leg (M76.71) 07/01/20 Active confirmed Problem Pain in right foot (864237625188896) Pain in right foot (M79.671) 07/01/20 Active confirmed Problem Finding relating to psychosocial functioning (619615496) Other specified problems related to psychosocial circumstances (Z65.8) 07/01/20 Active confirmed Problem Family history of ischemic heart disease (307227640) Family history of ischemic heart disease and other diseases of the circulatory system (Z82.49) 07/01/20 Active confirmed Problem Essential hypertension (91499225) Essential (primary) hypertension (I10) 07/01/20 Active confirmed Plan Of Treatment No Information Insurance Providers Payer Name Payer Address Payer Phone Subscriber Number Group Number Insured Name Patient Relationship to Insured Coverage Start Date Coverage End Date [facility] [address] [place] [address] [id number] NELSON HURTADO Self - patient is the insured 1
--- OUTSIDE RECORDS SUMMARY | 2025-05-08 13:23 | XMS_ITS | Clinical Summary ---
Author Organization [facility] Address [address] [place] [address] Care Team Providers Care Celery Cutter Name Role Phone Julio Moseley MD Primary Care Provider Allergies Active Allergy Reactions Criticality Noted Date Comments Morphine Itching 07/19/2019 Nortriptyline Hallucinations 07/19/2019 Sulfacetamide Unknown 09/07/2016 Medications metFORMIN ER 500 MG 24 hr tablet Take 500 mg by mouth daily. 1 06/27/2019 Active lisinopril-hydro chlorothiazide 10-12.5 MG tablet Take 1 tablet by mouth daily. 11 05/07/2019 Active ACCU-CHEK FASTCLIX LANCETS Misc U U TO TEST BLOOD SUGAR ONE D 6 08/03/2018 Active ACCU-CHEK DORA PLUS test strip U U TO TEST BLOOD SUGAR ONE D 6 08/03/2018 Active buPROPion SR 150 MG 12 hr tablet TK 1 T PO D FOR 3 DAYS THEN TK 1 T PO BID 2 06/08/2019 Active baclofen 10 MG tablet Take 10 mg by mouth 2 (two) times daily as needed. Active Family History Medical History Relation Comments Heart Disease Father COPD Maternal Grandfather Breast Cancer Maternal Grandmother Cancer Maternal Grandmother Mental Health Mother Relation Status Comments Father Maternal Grandfather Maternal Grandmother Mother Social History Tobacco Use Types Packs/Day Years Used Date Smoking Tobacco: Former Smokeless Tobacco: Never Alcohol Use Standard Drinks/Week Comments No 0 (1 standard drink = 0.6 oz pur e alcohol) AUDIT-C Answer Date Recorded Frequency of Alcohol Consumption Never 07/19/2019 Average Number of Drinks Not on file 019 Frequency of Binge Drinking Not on file 12/2018 Comments Unknown Sex and Gender Information Value Date Recorded Sex Assigned at Not on file Legal Sex Female 9:22 PM CDT Gender Identity Not on file Sexual Orientation Not on file Last Filed Vital Signs Vital Sign Reading Time Taken Comments Blood Pressure 125/76 07/27/2019 10:00 AM CDT Pulse 65 07/27/2019 10:00 AM CDT Temperature 36.2 C (97.2 F) 07/27/2019 10:00 AM CDT Respiratory Rate 18 07/27/2019 10:00 AM CDT Oxygen Saturation 99% 07/27/2019 10:00 AM CDT Inhaled Oxygen Concentration - - Weight 111.1 kg (245 lb) 07/19/2019 1:59 PM CDT Height 170.2 cm (5' 7) 07/19/2019 1:59 PM CDT Body Mass Index 38.37 07/19/2019 1:59 PM CDT Plan of Treatment Health Maintenance Due Date Last Done Comments Annual Physical 1963 Hepatitis C 1978 DTaP, Tdap and Td Vaccines ( 1 - Tdap) 1979 Pneumococcal Vaccine: 50+ Years (1 of 1 - PCV) 2010 Zoster Vaccines (1 of 2) 2010 Mammogram Screening 10/16/2021 10/16/2019 COVID-19 Vaccine (1 - 2023-2 5 season) 2024 Colorectal Cancer Screening Colonoscopy (10 Years) 07/27/2029 07/27/2019, 07/27/2019 RSV Immunization or 60+ Years (1 - 1-dose 75+ series) 2035 Meningococcal B Vaccine Aged Out No l onger eligible based on patient's age to complete this topic Meningococcal Vaccine Aged Out No samir tony eligible based on patient's age to complete this topic RSV Immunizations Under 20 Months Aged Out No longer eligible b ased on patient's age to complete this topic Procedures Procedure Name Priority Date/Time Associated Diagnosis Comments MG SCREENING W JASPREET KIMBERLY DIGI Routine 10/16/2019 4:16 PM SOFTWARE ARCHITECT Visit for screening mammogram COLONOSCOPY 07/27/2019 9:29 AM CDT from Last 3 Months or Most Recently Relevant to Health Maintenance Results * MG SCREENING W JASPREET KIMBERLY DIGI (10/16/2019 4:16 PM SOFTWARE ARCHITECT) Anatomical Region Laterality Modality Breast Bilateral Mammography 10/16/2019 4:26 PM SOFTWARE ARCHITECT Impressions 10/16/2019 4:30 PM SOFTWARE ARCHITECT IMPRESSION: No interval features to suggest malignancy. In the absence of clinical symptoms, return for annual screening due in one year. RECOMMENDATION: Routine Screening, BILATERAL in 1 year ASSESSMENT: ACR BI-RADS 2 - BENIGN FINDING(S) Interpreted By: Connie Baez MD, 10/16/2019 4:26 PM Narrative 10/16/2019 4:30 PM SOFTWARE ARCHITECT EXAMINATION: BILATERAL SCREENING MAMMOGRAPHY CLINICAL INDICATION: 59 years of age female routine screening. COMPARISON: Screening mammogram(s) 12/30 TECHNIQUE: Digital CC & MLO views. Tomosynthesis imaging acquisition Study read with the assistance of a computer-aided detection system. TISSUE DENSITY: There are scattered areas of fibroglandular density. Presence of scattered but nodular breast tissue pattern slightly decreases mammographic sensitivity. FINDINGS: Some scattered calcifications. Fairly stable glandular pattern with similar asymmetric dense nodular patches , nodular densities, and nodules all relatively unchanged after accounting for differences in technique and involutional changes, when compared to prior studies dating back to 12/28. Given longevity with stability, this favors findings of low malignant potential at this time. No suspicious grouping of microcalcifications, architectural distortion, or new dominant suspicious nodule 3 dimensionally demonstrated in either breast. us Jen DANIELLE MAMMO Final Re sult * COLONOSCOPY (07/27/2019 9:29 AM CDT) Aditya Rawls MD GI PROCEDURE ORDERABLES Final Result from Last 3 Months or Most Recently Relevant to Health Maintenance Insurance [place] Care Teams Celery Cutter Relationship Specialty Start Date End Date Julio Moseley MD [address] [place] [address] PCP - General FAMILY PRACTICE 06/11/19
--- OUTSIDE RECORDS SUMMARY | 2025-05-08 13:23 | XMS_ITS | Encounter Summary ---
Author Organization [facility] Address [address] [place] [address] Care Team Providers Care Second Shift Supervisor Name Role Phone Julio Moseley MD Primary Care Provider Encounter Details Date Type Department Care Team (Late st Contact Info) Description 03/24/2019 Abstract SFL CONVERSION [address] [place] [address] , Generic Conversion, Social History Tobacco Use Types Packs/Day Years Used Date Smoking Tobacco: Never Assessed Comments Unknown Sex and Gender Information Value Date Recorded Sex Assigned at Not on file Legal Sex Female 9:22 PM CDT Gender Identity Not on file Sexual Orientation Not on file documented as of this encounter Plan of Treatment Not on file documented as of this encounter Visit Diagnoses Not on filedocumented in this encounter Care Teams Second Shift Supervisor Relationship Specialty Start Date End Date Juloi Moseley MD [address] [place] [address] PCP - General FAMILY PRACTICE 06/11/19 documented as of this encounter
--- OUTSIDE RECORDS SUMMARY | 2025-05-08 13:23 | XMS_ITS | Patient Health Record ---
Author Organization [facility] [employer] Address [address] [facility] [address] [place] [address] Care Team Providers Care Motor And Generator Assembler Name Role Phone Kevyn Underwood Unavailable [phone] Reason For Referral No Information Plan Of Treatment No Information
[2025-05-08 13:30] LABS: Hematocrit 40.2 % (35.0-49.0); Hemoglobin 13.2 g/dL (12.0-15.0); Immature Granulocyte Percent A 0.3 % (0.0-0.0); Lymphocytes Absolute Auto 2.59 K/mm3 (1.10-4.50); Mean Corpuscular HGB Conc 32.8 g/dL (32-36); Mean Corpuscular Hemoglobin 30.3 pg (27.0-31.0); Mean Corpuscular Volume 92.4 fL (78.0-102.0); Nucleated Red Blood Cells Absolute Auto 0.00 K/mm3 (0.00-0.00); Nucleated Red Blood Cells Perc 0.0 % (0-0.0); Platelet Count Result 238 K/mm3 (150-420); Red Blood Count 4.35 M/mm3 (4.20-5.40); White Blood Count 9.5 K/mm3 (4.8-10.8)
[2025-05-08 14:11] LABS: Iron 64 ug/dL (37-170)
[2025-05-08 14:20] LABS: Percent Iron Saturation 19 % (20-50)
[2025-05-08 14:47] LABS: Ferritin 73.80 ng/mL (11.1-264)
== END 2025-05-08 13:14 | disposition home or self-care (01) ==
LOC: CHSLAB 13:17
PROVIDERS: PCP Nurse Practitioner Family; Visit Provider Internal Medicine
DX: E83.110 Hereditary hemochromatosis (principal); K76.0 Fatty (change of) liver, not elsewhere classified
CPT/HCPCS: 36415; 82728; 83540; 83550; 85025